=== PATIENT | female | born 1945 | race Caucasian/White ===

== ENCOUNTER 2021-07-05 00:17 | Inpatient (IN) ==
[2021-07-05] MEDS ORDERED: morphine 4 MG/ML VIAL IV ONE (00:45)
[2021-07-05] MEDS ORDERED: ONDANSETRON 4 MG/2 ML VIAL IV PRN ×3 (01:18→18:45)
[2021-07-05] MEDS ORDERED: NALOXONE HCL 0.4 MG/ML VIAL IV PRN ×2 (01:18→18:45)
--- NOTE | 2021-07-05 01:35 | Emergency Department Note ---
Lower Extremity Injury HPI General Chief Complaint: Extremity Injury, Lower Stated Complaint: r hip pain Time Seen by Provider: 07/05/21 00:29 Source: EMS Mode of arrival: ambulatory Limitations: no limitations History of Present Illness HPI Narrative: Narrative: 76-year-old female history of depression, osteoarthritis, osteopenia, COPD presents to ED with severe right hip pain. She tripped and fell on at around 5 PM and has tried to bear weight and ambulate slightly since then but despite using a walker she has not really been able to and the pain is worsening which brought her to the ER. She denies head injury LOC, syncope. Denies pain or weakness in any other extremity, no head pain neck pain thoracic or abdominal pain no blood thinners no distal numbness tingling in the right lower extremity Related Data Home Medications Medication Instructions Recorded Confirmed trazodone 100 mg tablet 200 mg PO QHS PRN tab 11/07/14 06/17/21 buspirone 10 mg tablet See Dose Instructions PO .COMPLEX 05/23/15 06/17/21 tab escitalopram oxalate 10 mg tablet 10 mg PO QDAY 12/24/15 06/17/21 lorazepam 0.5 mg tablet 0.5 mg PO BID tab 12/24/15 06/17/21 bupropion HCl 300 mg 24 hr tablet, 300 mg PO QAM 06/23/16 06/17/21 extended release memantine ER 28 mg-donepezil 10 mg 1 cap PO QDAY 06/07/19 06/17/21 capsule sprinkle,ext.release 24 hr (Namzaric) atorvastatin 10 mg tablet 10 mg PO QDAY tab 03/19/21 06/17/21 ramelteon 8 mg tablet 8 mg PO QHS tab 03/19/21 06/17/21 linaclotide 72 mcg capsule 72 mcg PO QAM 06/17/21 06/17/21 (Linzess) Previous Rx's Medication Instructions Recorded incontinence pad, liner, disp #100 each 03/06/16 albuterol sulfate 90 mcg/actuation 2 puff INHALATION .COMPLEX PRN #18 11/25/17 aerosol inhaler g cholecalciferol (vitamin D3) 1,250 50,000 unit PO QMONTH #12 cap 08/22/20 mcg (50,000 unit) capsule potassium chloride 10 mEq 10 meq PO QDAY #90 tab 10/15/20 tablet,extended release levothyroxine 75 mcg tablet 75 mcg PO QDAY #90 tab 02/05/21 hydroxychloroquine 200 mg tablet 300 mg PO QDAY #135 tab 02/20/21 alendronate 70 mg tablet 70 mg PO QWEEK #12 tab 03/06/21 pantoprazole 20 mg tablet,delayed 20 mg PO BID #180 tab 04/17/21 release lidocaine 5 % topical ointment 1 applic TOPICAL .QD-TID PRN #30 g 04/25/21 nitroglycerin 0.4 % (w/w) rectal 1 inch IN BID #30 g 05/08/21 ointment duloxetine 30 mg capsule,delayed 30 mg PO QDAY #30 cap 06/26/21 release (Cymbalta) Allergies Allergy/AdvReac Type Severity Reaction Status Date / Time naproxen AdvReac Unknown Verified 06/17/21 14:48 Review of Systems ROS ROS Narrative: Narrative: At least 10 systems reviewed and otherwise acutely negative except as in the HPI PFSH Narrative Patient History Narrative: Narrative: Medical/Surgical/Family History All Active Problems Closed hip fracture (Acute) Fecal incontinence due to anorectal disorder (Acute) Nausea (Acute) Complaint of melena (Acute) Acute posterior anal fissure (Acute) Lesion of left lung (Acute) JOHN (obstructive sleep apnea) (Acute) Free monoclonal light chain (Acute) Hypothyroidism (Chronic) Microscopic hematuria (Chronic) 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) Pleural effusion transudative (Acute) Urinary frequency (Chronic) Gross hematuria (Acute) Right shoulder pain (Acute) Alcohol abuse, episodic (Chronic) Allergic rhinitis (Chronic) Anemia, iron deficiency (Chronic) Anxiety disorder (Chronic) Cataract (Chronic) COPD (chronic obstructive pulmonary disease) (Chronic) Chronic pain (Chronic) Constipation (Chronic) Depressive disorder (Chronic) Dermatitis (Chronic) Dysphagia (Chronic) Gastroesophageal reflux (Chronic) Hyperlipidemia (Chronic) Insomnia (Chronic) Skin lesion (Chronic) Low back pain (Chronic) Menopausal and postmenopausal disorder (Chronic) Myalgia (Chronic) Osteoarthrosis (Acute) Pain in joint, lower leg (Chronic) Scoliosis (Chronic) Sinusitis, chronic (Chronic) Status post bunionectomy (Chronic) History of colonoscopy (Chronic) History of dilation and curettage (Chronic) History of esophagogastroduodenoscopy (Chronic) History of hemorrhoidectomy (Chronic) History of knee replacement procedure of right knee (Chronic) History of lumpectomy of left breast (Chronic) History of temporomandibular joint disorder (Chronic) History of varicose vein stripping (Chronic) Decreased peripheral vision (Chronic) Fall at home (Chronic) Memory impairment (Chronic) Chest pain made worse by breathing (Chronic) Exudative pleural effusion (Chronic) Degenerative joint disease of right hip (Chronic) Antinuclear factor positive (Chronic) Acquired hypothyroidism (Chronic) Long-term use of immunosuppressant medication (Acute) Encounter for long-term (current) use of high-risk medication (Acute) Osteoporosis (Acute) Shoulder pain, bilateral (Acute) Squamous cell carcinoma (Chronic) Antinuclear factor positive (Chronic) Memory loss (Chronic) Incontinence (Chronic) Trigger finger of both hands (Acute) Colloid thyroid nodule (Chronic) Hoarseness of voice (Chronic) Disequilibrium (Chronic) Weight loss (Acute) Medicare annual wellness visit, initial (Acute) Polyarthralgia (Acute) Medical History Abdominal pain 03/27/14 - Dr. Raines Acquired hypothyroidism Colloid thyroid nodules. On Synthroid 50 mcg daily for hypothyroidism. Acute posterior anal fissure Not improved Alcohol abuse, episodic 03/27/14 - Dr. Raines Allergic rhinitis 1999. Nasal allergies; year round Anemia, iron deficiency 07/25/2013. Low ferritin 28 colonoscopy unrevealing h/o low iron as per patient TIBC ok. Will start on iron replacement, risks benefits and common aderse events discussed, all questions answered. Ok to use colace if patient has constipation. Recheck CBC, check celiac panel, check C MP in 3 months. Antinuclear factor positive Anxiety disorder Patient states well-controlled on bupropion, buspirone, Lexapro, gabapentin, and lorazepam. She also takes trazodone as needed for sleep. This is managed by Dr. Mckeon Cataract Chest pain Chest pain made worse by breathing Chronic pain 1999; Low back, shoulders, and arms. She has taken oxycodone in the past for this. Colloid thyroid nodule Biopsy-proven. Thyroid ultrasound to check for growth due to complaint of hoarseness of voice. Complaint of melena Resolved a few days ago Hemoccult negative today in exam room Constipation On Linzess. Managed by GI. COPD (chronic obstructive pulmonary disease) Appears mild. I do not have PFTs. Smoked for only 3 years, and quit 20 years ago. Patient uses Incruse Ellipta occasionally. States she does not use a lbuterol. Costochondritis 03/27/14 - Dr. Raines Decreased peripheral vision Degenerative joint disease of right hip moderate to severe, central wear pattern Depressive disorder Family hx of this as well; she feels that her symptoms are well controlled on her current medications; she is seen a [facility] outpatient [facility]. Dermatitis Disequilibrium Holter monitor without findings suggestive of cardiac cause of dizziness. Consider neurologic work-up. Dysphagia 03/27/14 - Dr. Raines Edema of both feet Encounter for long-term (current) use of high-risk medication Exudative pleural effusion Fall at home Fatigue Fecal incontinence due to anorectal disorder Female pattern hair loss Most likely female pattern hair loss. Declines Lelia We reviewed her medications that could potentially contribute, which include hydroxychloroquine, antidepressants, and atorvastatin Patient wants to stop the atorvastatin after discussion of risks versus benefits Free monoclonal light chain Gastroesophageal reflux Nausea is primary symptom Gross hematuria Hallucinations Hoarseness of voice Possibly silent GERD. Start Protonix 20 mg every morning. Hyperlipidemia Taking statin for primary prevention, but patient now declining Hypothyroidism Due to colloid nodule Synthroid 75 mcg daily Incontinence Insomnia Lesion of left lung Appears similar to previous CT scans. Likely round atelectasis. Long-term use of immunosuppressant medication Low back pain Memory impairment Memory loss [facility]CI. On Namzaric. Managed by Dr. Snu Menopausal and postmenopausal disorder Microscopic hematuria CT negative besides thickening of bladder. Cystoscopy ordered. Myalgia 2002; Muscle pain in her arms, shoulders, and back. Nausea Zofran caused headaches Recent EGD did show inflammation in the stomach JOHN (obstructive sleep apnea) Osteoarthrosis Osteoporosis Pain in joint, lower leg Total knee replacement in her right knee Pain in joint, shoulder region Pleural effusion on left Pleural effusion transudative Status post thoracentesis. Reassurance provided. Will repeat CT scan in 3 months to monitor pleural effusion and pulmonary nodules. Polyarthralgia Right hip pain Scoliosis Shoulder pain, bilateral Sinusitis, chronic Skin lesion 04/10/2011; Right lower leg/removed Squamous cell carcinoma Trigger finger of both hands Trochanteric bursitis of both hips Urinary frequency Mild chronic, mostly in the mornings Trace leukocyte esterase and trace blood Multiple urine cultures in the past have been negative for significant growth Microscopic hematuria, cystoscopy scheduled UTI (urinary tract infection) 12/13/2013 Weight loss Unintentional weight loss of 14 pounds over the 3 mo. approximately 30 pounds over the last couple of years. Lab work-up unrevealing. Age-appropriate cancer screening up-to-date. Surgical History History of colonoscopy 07/05/2013 noted tubular adenoma in transervese colon History of dilation and curettage x2 for menorrhagia History of esophagogastroduodenoscopy 04/13/2014 History of esophagogastroduodenoscopy (EGD) (01/01/17) History of hemorrhoidectomy History of knee replacement procedure of right knee Jan 2013; per Dr. Graham History of lumpectomy of left breast . Side not specified. Benign. History of temporomandibular joint disorder 1982; TMJ surgery History of varicose vein stripping 1989; x2 Status post bunionectomy 1998, 2012; Bunion surgery. Left foot; right foot - Dr. Estrella Family History No family history of renal disease No problems noted. Grandmother Anemia Maternal Family history of diabetes mellitus Maternal; Not specified Family history of hepatitis Maternal; Not specified Disorder of joint Maternal Osteoporosis Maternal; not specified Uncle Anemia Family history of diabetes mellitus Not specified Family history of hepatitis Not specified Disorder of joint Osteoporosis Not specified Niece Bipolar affective disorder Schizophrenia Sister , 60s; from breast cancer Malignant neoplasm of breast Essential hypertension Irritable bowel syndrome Father Essential hypertension Social History Smoking Status: Former smoker Alcohol Intake Frequency: does not drink Substance Use: does not use Exam Narrative Narrative: Narrative: Constitutional: normally developed, appears in some pain, overall a bit frail Head: Normocephalic, atraumatic, Eyes: No Icterus, ENT: Moist mucus membranes, Neck: Supple, Cardiac: Normal heart sounds, palpable dorsalis pedis and radial pulses, Pulmonary: Normal respiratory effort. Breath sounds clear, no wheeze, rhonchi, rales, Gastrointestinal: Abdomen soft, non-distended, non-tender, pelvis stable Musculoskeletal: No gross deformities, well perfused, no midline spinal tendern ess bilateral upper extremities left lower extremity unremarkable. Right lower extremity distally she is neurovascularly intact and knee is nontender nor is ankle. However she has severe right hip pain with any attempted logroll or any attempted range of motion Skin: warm, dry Neuro: Alert and oriented. General Limitations: no limitations Course Vital Signs Vital signs: Vital Signs Temperature 36.9 C 07/05/21 00:22 Pulse Rate 68 07/05/21 00:22 Respiratory Rate 17 07/05/21 00:22 Blood Pressure 118/77 07/05/21 00:22 Pulse Oximetry (%) 98 07/05/21 00:22 Temperature 36.9 C 07/05/21 00:22 Pulse Rate 74 07/05/21 01:16 Respiratory Rate 17 07/05/21 00:22 Blood Pressure 119/70 07/05/21 01:16 Pulse Oximetry (%) 95 07/05/21 01:16 MDM MDM Narrative Medical decision making narrative: Narrative: Patient with mechanical trip and fall earlier this evening but unable to really ambulate on it so she came in to ER. Most suspicious for right hip fracture given her extreme pain with any attempted range of motion or logroll. Is given analgesia will obtain x-ray X-ray per my interpretation does show a suspected impacted femoral neck fracture on that right side Chest x-ray shows no obvious traumatic injury Will obtain basic laboratory studies, patient is made n.p.o. and given some maintenance IV fluids I have spoken with Dr. Shankar who will plan orthopedic operative fix tomorrow I have spoken with Dr. Delatorre who accepts admission. Vital signs stable Lab Data Result diagrams: 07/05/21 00:58 07/05/21 00:58 ED POC Tests ED POC Tests: [facility] - SARS Antigen Negative Discharge Plan Patient/Caregiver Discharge Instructions Pt seen by ACCREDITATION COORDINATOR/PA only: No Clinical Impression: Closed hip fracture Patient Disposition: Xfer As Inpt ([facility]) Condition: Fair Follow up with: Riki Mg DO [Primary Care Provider] - Prescriptions: No Action (DME) incontinence pad, liner, disp pad See Dose Instructions .ROUTE .MEDSUPPLY Qty: 100 2RF Dose Instruction: As directed Rx Instructions: Use as directed. Also include urinary wipes cholecalciferol (vitamin D3) 1,250 mcg (50,000 unit) capsule 50,000 unit PO QMONTH Qty: 12 0RF potassium chloride 10 mEq tablet extended release 10 meq PO QDAY Qty: 90 3RF Rx Instructions: give with food (meal/snack) levothyroxine 75 mcg tablet 75 mcg PO QDAY Qty: 90 3RF alendronate 70 mg tablet 70 mg PO QWEEK Qty: 12 1RF lidocaine 5 % ointment 1 applic topical .QD-TID PRN (Reason: pain) Qty: 30 0RF nitroglycerin 0.4 % (w/w) ointment 1 inch IN BID Qty: 30 1RF duloxetine [Cymbalta] 30 mg capsule,delayed release(DR/EC) 30 mg PO QDAY Qty: 30 2RF trazodone 100 mg tablet 200 mg PO QHS PRN (Reason: Sleep) 0RF buspirone 10 mg tablet See Dose Instructions mg PO .COMPLEX 0RF Rx Instructions: PO Take 1 & 1/2 tablets in the morning and midday and 1 tablet at bedtime PO albuterol sulfate 90 mcg/actuation HFA aerosol inhaler 2 puff INHALATION .COMPLEX PRN (Reason: sob) Qty: 18 3RF Rx Instructions: 2 puff INHALATION Q4-6H PRN; administer with spacer Namzaric 28-10 mg capsule,sprinkle,ER 24hr 1 cap PO QDAY 0RF ramelteon 8 mg tablet 8 mg PO QHS 0RF atorvastatin 10 mg tablet 10 mg PO QDAY 0RF pantoprazole 20 mg tablet,delayed release (DR/EC) 20 mg PO BID Qty: 180 3RF Linzess 72 mcg capsule 72 mcg PO QAM 0RF lorazepam 0.5 mg tablet 0.5 mg PO BID 0RF escitalopram oxalate 10 mg tablet 10 mg PO QDAY 0RF bupropion HCl 300 mg tablet extended release 24 hr 300 mg PO QAM 0RF hydroxychloroquine 200 mg tablet 300 mg PO QDAY Qty: 135 1RF
[2021-07-05 01:40] LABS: Basophils # (Auto) 0.06 K/mcL (0.00-0.30); Basophils % (Auto) 0.5 % (0.0-2.0); Eosinophils # (Auto) 0.02 K/mcL (0.00-0.70); Eosinophils % (Auto) 0.2 % (0.0-7.0); Hematocrit 38.5 % (34.1-44.9); Hemoglobin 12.5 g/dL (11.2-15.7); Lymphocytes % (Auto) 6.1 % (15.5-49.0); Mean Cell Volume 93.9 fL (80.0-100.0); Mean Corpuscular HGB Conc 32.5 g/dL (31.0-36.0); Mean Platelet Volume 9.6 fL (7.4-10.4); Monocytes # (Auto) 0.91 K/mcL (0.10-0.90); Monocytes % (Auto) 7.9 % (1.0-12.0); Neutrophils % (Auto) 85.3 % (38.0-78.0); Platelet Count 224 K/mcL (140-440); Red Cell Distribution Width 14.1 % (11.5-14.5); WBC 11.5 K/mcL (4.5-11.0)
[2021-07-05 01:53] LABS: Blood Urea Nitrogen 14 mg/dL (8-23); Calcium 8.6 mg/dL (8.6-10.4); Carbon Dioxide 24 mmol/L (22-30); Chloride 92 mmol/L (96-108); Glomerular Filtration Rate 89; Glucose 118 mg/dL (70-105)
[2021-07-05] MEDS: LACTATED RINGERS 1,000 ML IV SCH ×2 (02:59→16:32)
[2021-07-05] MEDS: HYDROmorphone 0.5 MG/0.5 ML SYRINGE IV PRN ×3 (02:59→09:35)
[2021-07-05] MEDS ORDERED: IPRATROPIUM/ALBUTEROL 3 ML AMPUL.NEB NEB PRN ×3 (07:51→18:45)
[2021-07-05] MEDS ORDERED: SCOPOLAMINE 1 PATCH PATCH TOPICAL PRN (07:51)
--- NOTE | 2021-07-05 07:51 | XRay Report ---
HISTORY: Fell with right hip pain FINDINGS: There is an acute subcapital fracture of the right femoral neck. There is impaction along the lateral border resulting in angulation deformity. The fracture does not extend to the articular surface. The hip joint is normal in width. There is also an obliquely oriented fracture through the right superior pubic ramus. These fractures are new compared with the prior CT done on 06/20/21. IMPRESSION: Subcapital fracture of the right femoral neck and fractured right superior pubic ramus Interpreted and Authenticated by: Yoel Dai 07/05/21
--- NOTE | 2021-07-05 07:53 | XRay Report ---
HISTORY: Preop for repair of right hip fracture FINDINGS: Nodular pleural thickening is present in the left lower thorax. This has remained stable since the recent chest CT done on 06/20/21. There is underlying pulmonary fibrosis. No acute infiltrate is present. The heart size is normal. There is no congestive heart failure. IMPRESSION: chronic pleural and parenchymal scarring, predominantly involving the left lower thorax. No acute abnormality Interpreted and Authenticated by: Yoel Dai 07/05/21
--- NOTE | 2021-07-05 11:30 | Internal Med History&Physical ---
HPI History of Present Illness Patient information: Note initiated : 07/05/21 at 11:27 am Service Date, if different from initiated Date: [] Patient: Aminata Erickson a 76 y/o F admitted on 07/05/21 for r hip pain. Chief Complaint: [] History of present illness: Ms. Erickson is a 76 year old F Patient presented to ED after trip and fall around 5 PM with right hip pain. She does use a walker typically. Patient was sitting down and she got up to go take the garbage out got dizzy and fell. No loss of consciousness. Work-up in the ED revealed a right hip fracture. Dr. Shankar was contacted. Review of Systems: Pertinent positives as above. Denies headache/fever/chills/nausea/vomiting/chest or abdominal pain/cough/dyspnea/diarrhea. Remaining 10 point review of system reviewed negative. 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) Pleural effusion transudative (Acute) Urinary frequency (Chronic) Gross hematuria (Acute) Right shoulder pain (Acute) Alcohol abuse, episodic (Chronic) Allergic rhinitis (Chronic) Anemia, iron deficiency (Chronic) Anxiety disorder (Chronic) Cataract (Chronic) COPD (chronic obstructive pulmonary disease) (Chronic) Chronic pain (Chronic) Constipation (Chronic) Depressive disorder (Chronic) Dermatitis (Chronic) Dysphagia (Chronic) Gastroesophageal reflux (Chronic) Hyperlipidemia (Chronic) Insomnia (Chronic) Skin lesion (Chronic) Low back pain (Chronic) Menopausal and postmenopausal disorder (Chronic) Myalgia (Chronic) Osteoarthrosis (Acute) Pain in joint, lower leg (Chronic) Scoliosis (Chronic) Sinusitis, chronic (Chronic) Status post bunionectomy (Chronic) History of colonoscopy (Chronic) History of dilation and curettage (Chronic) History of esophagogastroduodenoscopy (Chronic) History of hemorrhoidectomy (Chronic) History of knee replacement procedure of right knee (Chronic) History of lumpectomy of left breast (Chronic) History of temporomandibular joint disorder (Chronic) History of varicose vein stripping (Chronic) Decreased peripheral vision (Chronic) Fall at home (Chronic) Memory impairment (Chronic) Chest pain made worse by breathing (Chronic) Exudative pleural effusion (Chronic) Degenerative joint disease of right hip (Chronic) Antinuclear factor positive (Chronic) Acquired hypothyroidism (Chronic) Long-term use of immunosuppressant medication (Acute) Encounter for long-term (current) use of high-risk medication (Acute) Osteoporosis (Acute) Shoulder pain, bilateral (Acute) Squamous cell carcinoma (Chronic) Antinuclear factor positive (Chronic) Memory loss (Chronic) Incontinence (Chronic) Trigger finger of both hands (Acute) Colloid thyroid nodule (Chronic) Hoarseness of voice (Chronic) Disequilibrium (Chronic) Weight loss (Acute) Medicare annual wellness visit, initial (Acute) Polyarthralgia (Acute) Medical History Abdominal pain 03/27/14 - Dr. Raines Acquired hypothyroidism Colloid thyroid nodules. On Synthroid 50 mcg daily for hypothyroidism. Acute posterior anal fissure Not improved Alcohol abuse, episodic 03/27/14 - Dr. Raines Allergic rhinitis 1999. Nasal allergies; year round Anemia, iron deficiency 07/25/2013. Low ferritin 28 colonoscopy unrevealing h/o low iron as per patient TIBC ok. Will start on iron replacement, risks benefits and common aderse events discussed, all questions answered. Ok to use colace if patient has constipation. Recheck CBC, check celiac panel, check C MP in 3 months. Antinuclear factor positive Anxiety disorder Patient states well-controlled on bupropion, buspirone, Lexapro, gabapentin, and lorazepam. She also takes trazodone as needed for sleep. This is managed by Dr. Mckeon Cataract Chest pain Chest pain made worse by breathing Chronic pain 2000; Low back, shoulders, and arms. She has taken oxycodone in the past for this. Colloid thyroid nodule Biopsy-proven. Thyroid ultrasound to check for growth due to complaint of hoarseness of voice. Complaint of melena Resolved a few days ago Hemoccult negative today in exam room Constipation On Linzess. Managed by GI. COPD (chronic obstructive pulmonary disease) Appears mild. I do not have PFTs. Smoked for only 3 years, and quit 20 years ago. Patient uses Incruse Ellipta occasionally. States she does not use albuterol. Costochondritis 03/27/14 - Dr. Raines Decreased peripheral vision Degenerative joint disease of right hip moderate to severe, central wear pattern Depressive disorder Family hx of this as well; she feels that her symptoms are well controlled on her current medications; she is seen a [facility] outpatient MH. Dermatitis Disequilibrium Holter monitor without findings suggestive of cardiac cause of dizziness. Consider neurologic work-up. Dysphagia 03/27/14 - Dr. Raines Edema of both feet Encounter for long-term (current) use of high-risk medication Exudative pleural effusion Fall at home Fatigue Fecal incontinence due to anorectal disorder Female pattern hair loss Most likely female pattern hair loss. Declines Lelia We reviewed her medications that could potentially contribute, which include hydroxychloroquine, antidepressants, and atorvastatin Patient wants to stop the atorvastatin after discussion of risks versus benefits Free monoclonal light chain Gastroesophageal reflux Nausea is primary symptom Gross hematuria Hallucinations Hoarseness of voice Possibly silent GERD. Start Protonix 20 mg every morning. Hyperlipidemia Taking statin for primary prevention, but patient now declining Hypothyroidism Due to colloid nodule Synthroid 75 mcg daily Incontinence Insomnia Lesion of left lung Appears similar to previous CT scans. Likely round atelectasis. Long-term use of immunosuppressant medication Low back pain Memory impairment Memory loss MCI. On Namzaric. Managed by Dr. Sun Menopausal and postmenopausal disorder Microscopic hematuria CT negative besides thickening of bladder. Cystoscopy ordered. Myalgia 2002; Muscle pain in her arms, shoulders, and back. Nausea Zofran caused headaches Recent EGD did show inflammation in the stomach JOHN (obstructive sleep apnea) Osteoarthrosis Osteoporosis Pain in joint, lower leg Total knee replacement in her right knee Pain in joint, shoulder region Pleural effusion on left Pleural effusion transudative Status post thoracentesis. Reassurance provided. Will repeat CT scan in 3 months to monitor pleural effusion and pulmonary nodules. Polyarthralgia Right hip pain Scoliosis Shoulder pain, bilateral Sinusitis, chronic Skin lesion 04/10/2011; Right lower leg/removed Squamous cell carcinoma Trigger finger of both hands Trochanteric bursitis of both hips Urinary frequency Mild chronic, mostly in the mornings Trace leukocyte esterase and trace blood Multiple urine cultures in the past have been negative for significant growth Microscopic hematuria, cystoscopy scheduled UTI (urinary tract infection) 12/13/2013 Weight loss Unintentional weight loss of 14 pounds over the 3 mo. approximately 30 pounds over the last couple of years. Lab work-up unrevealing. Age-appropriate cancer screening up-to-date. Surgical History History of colonoscopy 07/05/2013 noted tubular adenoma in transervese colon History of dilation and curettage x2 for menorrhagia History of esophagogastroduodenoscopy 04/13/2014 History of esophagogastroduodenoscopy (EGD) (01/01/17) History of hemorrhoidectomy History of knee replacement procedure of right knee Jan 2013; per Dr. Graham History of lumpectomy of left breast . Side not specified. Benign. History of temporomandibular joint disorder 1982; TMJ surgery History of varicose vein stripping 1989; x2 Status post bunionectomy 1998, 2012; Bunion surgery. Left foot; right foot - Dr. Estrella Family History No family history of renal disease No problems noted. 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: 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 smoking status: Former smoker quit date: 05/04/94 pack-years: 2 alcohol intake frequency: does not drink substance use type: does not use MEDS/ALLERGIES Home Medications and Allergies Home Medications Medication Instructions Recorded Confirmed Type trazodone 100 mg tablet 200 mg PO QHS PRN tab 11/07/14 06/17/21 History buspirone 10 mg tablet See Dose Instructions PO .COMPLEX 05/23/15 06/17/21 History tab escitalopram oxalate 10 mg tablet 10 mg PO QDAY 12/24/15 06/17/21 History lorazepam 0.5 mg tablet 0.5 mg PO BID tab 12/24/15 06/17/21 History incontinence pad, liner, disp #100 each 03/06/16 06/17/21 Rx bupropion HCl 300 mg 24 hr tablet, 300 mg PO QAM 06/23/16 06/17/21 History extended release albuterol sulfate 90 mcg/actuation 2 puff INHALATION .COMPLEX PRN #18 11/25/17 06/17/21 Rx aerosol inhaler g memantine ER 28 mg-donepezil 10 mg 1 cap PO QDAY 06/07/19 06/17/21 History capsule sprinkle,ext.release 24 hr (Namzaric) cholecalciferol (vitamin D3) 1,250 50,000 unit PO QMONTH #12 cap 08/22/20 06/17/21 Rx mcg (50,000 unit) capsule potassium chloride 10 mEq 10 meq PO QDAY #90 tab 10/15/20 06/17/21 Rx tablet,extended release levothyroxine 75 mcg tablet 75 mcg PO QDAY #90 tab 02/05/21 06/17/21 Rx hydroxychloroquine 200 mg tablet 300 mg PO QDAY #135 tab 02/20/21 06/17/21 Rx alendronate 70 mg tablet 70 mg PO QWEEK #12 tab 03/06/21 06/17/21 Rx atorvastatin 10 mg tablet 10 mg PO QDAY tab 03/19/21 06/17/21 History ramelteon 8 mg tablet 8 mg PO QHS tab 03/19/21 06/17/21 History pantoprazole 20 mg tablet,delayed 20 mg PO BID #180 tab 04/17/21 06/17/21 Rx release lidocaine 5 % topical ointment 1 applic TOPICAL .QD-TID PRN #30 g 04/25/21 06/17/21 Rx nitroglycerin 0.4 % (w/w) rectal 1 inch NC BID #30 g 05/08/21 06/17/21 Rx ointment linaclotide 72 mcg capsule 72 mcg PO QAM 06/17/21 06/17/21 History (Linzess) duloxetine 30 mg capsule,delayed 30 mg PO QDAY #30 cap 06/26/21 Rx release (Cymbalta) Allergies Allergy/AdvReac Type Severity Reaction Status Date / Time naproxen AdvReac Unknown Verified 06/17/21 14:48 EXAM Constitutional Vitals: Temp Pulse Resp BP Pulse Ox 99.0 F 68 14 87/51 96 07/05/21 07:13 07/05/21 07:13 07/05/21 07:13 07/05/21 07:13 07/05/21 07:13 Exam: General: Alert, Awake, No acute Distress Eyes/N/T: EOMI, PERRL, Head/Neck: neck supple, normocephalic atraumatic CV: RRR, No murmurs, normal s1/s2 Pulm: Clear b/l, no wheezing/rhonchi/rales Abd: soft, nontender, +BS x4 Ext: no clubbing/cyanosis/edema Neuro: Alert, no focal deficits, moves all extremities, CN 2-12 grossly intact, symmetrical strength b/l upper/lower, sensations intact b/l upper/lower Skin: warm/dry DATA Data Completed and Pending Labs: Labs from last 24 hours 07/05/21 07/05/21 00:58 00:58 WBC 11.5 H RBC 4.10 Hgb 12.5 Hct 38.5 MCV 93.9 MCH 30.5 MCHC 32.5 RDW 14.1 Plt Count 224 MPV 9.6 Neut % (Auto) 85.3 H Lymph % (Auto) 6.1 L [place] % (Auto) 7.9 Eos % (Auto) 0.2 Baso % (Auto) 0.5 Lymph # (Auto) 0.70 L [place] # (Auto) 0.91 H Eos # (Auto) 0.02 Baso # (Auto) 0.06 Absolute Neutrophils 9.83 H Sodium 127 L Potassium 3.9 Chloride 92 L Carbon Dioxide 24 Anion Gap 11.0 BUN 14 Creatinine 0.6 GFR Calculation 89 Glucose 118 H Calcium 8.6 A/P Narrative A/P Narrative: A: *Right hip fracture: *Polyarthritis: Follows with Dr. Martinez, on Plaquenil *MCI: Follows with Dr. Sun *Anxiety/depression: *Hypothyroidism: *GERD: *Generalized weakness/deconditioning: P: -Dr. Shankar for orthopedic surgery -Pain control -PT/OT -Continue home medications -ppx: SCD and postop per Ortho / home PPI Time Spent With Patient Time: Total time spent is greater than 50% in coordination of care (as documented) at patient's floor/unit and/or counseling patient: QUALITY VTE Deep Vein Thrombosis/Pulmonary Embolism Present on Admission: No
[2021-07-05] MEDS ORDERED: MAGNESIUM SULFATE 2 GM/50 ML BAG IV PRN (11:36)
[2021-07-05] MEDS ORDERED: POTASSIUM CHLORIDE 20 MEQ TABLET PO PRN ×2 (11:36)
[2021-07-05] MEDS ORDERED: morphine 4 MG/ML VIAL IV PRN (11:36)
[2021-07-05] MEDS ORDERED: SENNOSIDES 1 TABLET PO PRN (11:36)
[2021-07-05] MEDS ORDERED: POTASSIUM CHLORIDE 40 MEQ in DEXTROSE 5% IN WATER 500 ML IV PRN (11:36)
[2021-07-05] MEDS: 0.9 % SODIUM CHLORIDE 10 ML SYRINGE IV SCH ×2 (13:39→20:46)
[2021-07-05] MEDS: morphine 4 MG/ML VIAL IV PRN ×2 (16:01→22:06)
[2021-07-05] MEDS ORDERED: ceFAZolin 2 GM in DEXTROSE 5% IN WATER 50 ML IV SCH (17:30)
[2021-07-05] MEDS ORDERED: TRANEXAMIC ACID 1,000 MG/10 ML VIAL IV ONE (17:51)
[2021-07-05] MEDS ORDERED: BENZOCAINE/MENTHOL 1 LOZENGE PO PRN (17:51)
[2021-07-05] MEDS ORDERED: PROPOFOL 200 MG/20 ML VIAL IV ONE (18:00)
[2021-07-05] MEDS ORDERED: LIDOCAINE HCL/PF 100 MG/5 ML SYRINGE IV ONE (18:00)
[2021-07-05] MEDS ORDERED: ROPIVACAINE HCL/PF 20 ML VIAL IJ ONE (18:00)
[2021-07-05] MEDS ORDERED: KETAMINE 50 MG/ML Syringe (ANEST) IV ONE (18:00)
[2021-07-05] MEDS ORDERED: ONDANSETRON 4 MG/2 ML VIAL ONE (18:00)
[2021-07-05] MEDS ORDERED: TRANEXAMIC ACID 1,000 MG/10 ML VIAL ONE ×2 (18:00→19:54)
[2021-07-05] MEDS ORDERED: MAGNESIUM SULFATE 2 GM/50 ML BAG IV ONE (18:00)
[2021-07-05] MEDS ORDERED: DEXAMETHASONE 10 MG/ML VIAL ONE (18:00)
--- NOTE | 2021-07-05 18:00 | Discharge Plan ---
Discharge Plan Patient/Caregiver Discharge Instructions Activity: increase activity as tolerated and other Diet: Regular Diet Activity Restrictions/Additional Instructions: WBAT. Posterior hip precautions. Avoid flexion and IR Prescriptions: New hydrocodone-acetaminophen 7.5-325 mg tablet 1 tab PO Q6H PRN (Reason: pain) Qty: 60 0RF aspirin 81 mg tablet,delayed release (DR/EC) 81 mg PO BID Qty: 60 0RF No Action (DME) incontinence pad, liner, disp pad See Dose Instructions .ROUTE .MEDSUPPLY Qty: 100 2RF Dose Instruction: As directed Rx Instructions: Use as directed. Also include urinary wipes cholecalciferol (vitamin D3) 1,250 mcg (50,000 unit) capsule 50,000 unit PO QMONTH Qty: 12 0RF potassium chloride 10 mEq tablet extended release 10 meq PO QDAY Qty: 90 3RF Rx Instructions: give with food (meal/snack) levothyroxine 75 mcg tablet 75 mcg PO QDAY Qty: 90 3RF alendronate 70 mg tablet 70 mg PO QWEEK Qty: 12 1RF lidocaine 5 % ointment 1 applic topical .QD-TID PRN (Reason: pain) Qty: 30 0RF nitroglycerin 0.4 % (w/w) ointment 1 inch WI BID Qty: 30 1RF duloxetine [Cymbalta] 30 mg capsule,delayed release(DR/EC) 30 mg PO QDAY Qty: 30 2RF trazodone 100 mg tablet 200 mg PO QHS PRN (Reason: Sleep) 0RF buspirone 10 mg tablet See Dose Instructions mg PO .COMPLEX 0RF Rx Instructions: PO Take 1 & 1/2 tablets in the morning and midday and 1 tablet at bedtime PO albuterol sulfate 90 mcg/actuation HFA aerosol inhaler 2 puff INHALATION .COMPLEX PRN (Reason: sob) Qty: 18 3RF Rx Instructions: 2 puff INHALATION Q4-6H PRN; administer with spacer Namzaric 28-10 mg capsule,sprinkle,ER 24hr 1 cap PO QDAY 0RF ramelteon 8 mg tablet 8 mg PO QHS 0RF atorvastatin 10 mg tablet 10 mg PO QDAY 0RF pantoprazole 20 mg tablet,delayed release (DR/EC) 20 mg PO BID Qty: 180 3RF Linzess 72 mcg capsule 72 mcg PO QAM 0RF lorazepam 0.5 mg tablet 0.5 mg PO BID 0RF escitalopram oxalate 10 mg tablet 10 mg PO QDAY 0RF bupropion HCl 300 mg tablet extended release 24 hr 300 mg PO QAM 0RF hydroxychloroquine 200 mg tablet 300 mg PO QDAY Qty: 135 1RF Follow Up Plan Follow up with: Young Shankar MD [Physician] - Riki Mg DO [Primary Care Provider] - Patient Disposition: Home, Self-Care Prognosis: Fair Discharge Orders: Discharge Order (Routine); Ordered 07/08/21 Ordered By: Young Shankar
[2021-07-05] MEDS ORDERED: ACETAMINOPHEN 1,000 MG/100 ML BAG IV ONE ×2 (18:45→19:55)
[2021-07-05] MEDS ORDERED: PROMETHAZINE 25 MG/ML VIAL IV PRN (18:45)
[2021-07-05] MEDS ORDERED: diphenhydrAMINE 50 MG/ML VIAL IV PRN (18:45)
[2021-07-05] MEDS ORDERED: LACTATED RINGERS 250 ML IV PRN (18:45)
[2021-07-05] MEDS ORDERED: fentaNYL 100 MCG/2 ML VIAL IV PRN (18:45)
[2021-07-05] MEDS ORDERED: LACTATED RINGERS 1,000 ML IV SCH (18:45)
[2021-07-05] MEDS ORDERED: MEPERIDINE 25 MG/ML VIAL IV PRN (18:45)
--- NOTE | 2021-07-05 19:24 | Operative Note ---
Operative Note Operative Note: Pre-operative diagnosis: Right hip subcapital femoral neck fracture Postoperative diagnosis: Same Procedure: Right hip bipolar hemiarthroplasty Implants: Depuy Actis stem size 6, standard neck, with +12 mm 28 mm x 48 mm bipolar head Findings: As above diagnosis unstable femoral neck fracture Complications: None Estimated Blood loss: 300 cc Assist: Vadim Sellers whose assistance was critical safety efficacy of the procedure DOS: July 06, 2019 Clinical note: The patient continues to suffer from the above mentioned diagnosis. She had a fall and could not ambulate. She is brought to the emergency room where she was diagnosed with the above-mentioned fracture. Arthroplasty was offered to the patient and she consented the procedure where understanding the risk. Goal of surgery was to provide a stable implant which would allow the patient to begin ambulation right away and avoid complications from prolonged bedrest. H&P: The patient was met outside the operating room and symptoms were reviewed and a physical exam performed. The patient demonstrated ongoing symptoms and signs as previously discussed. Risk versus benefits of the procedure were again discussed. Patient wished to proceed with the surgery aware and understanding of these risks. The operative site was marked. The patient was prepped and draped in usual fashion lateral with the right hip up. All bony prominences were padded. Began by making incision directly lateral over the GT extending approximately 5 cm in either direction. This was then carried down through the IT band and gluteus sandra. This was then retracted exposing the short external rotators. The piriformis was palpated and this was released from the piriformis fossa using this as a sleeve of tissue peeled posteriorly and protect the sciatic nerve. The capsule was then split exposing the fractured femoral neck. The base of the neck was then exposed using 2 Homans. A saw was used to cut the femoral neck approximately 1 cm proximal to the lesser trochanter and a loose bone was removed. A corkscrew was then screwed into the fractured femoral head and this was removed. The acetabulum was cleared of debris. The proximal femoral shaft was then exposed. It was broached with successively larger sizes until a broach of the size mentioned above was found to have a good secure fit in the canal. Successively larger trial neck lengths were used until good stability was achieved with the size mentioned above. Hip stability was checked in flexion and internal rotation and was not found to dislocate spontaneously. The knees and heels were also palpated through the drape and found to be of equivalent length. The trial was then removed. The canal was irrigated with copious amounts of normal saline and irrisept solution. The definitive implant was then inserted. Hip was reduced. Was again checked for stability and did not dislocate spontaneously and and leg lengths were checked manually and found to be equivalent. Capsule was then closed with a #5 FiberWire suture with 2 [id number] sutures. A modified Nilo-Shashank suture was used to capture the piriformis and reattachment of the piriformis fossa. The IT band was closed with a strata fix followed by Monocryl for the subcutaneous layers and rosie for the skin. Sterile dressing was applied. Patient was brought to PACU in good condition. Dressing can be changed to a waterproof dressing in 1 to 2 days. The patient should follow-up with orthopedics in 2 weeks time for wound check and staple removal. Patient weight- bear as tolerated but should remain on posterior precautions avoiding hip flexion beyond 90 degrees and internal rotation.
[2021-07-05] MEDS: METHOCARBAMOL 1,000 MG/10 ML VIAL IV PRN (20:43)
[2021-07-05] MEDS: HYDROcodone/APAP 5/325MG TABLET PO PRN (20:44)
[2021-07-05] MEDS: ENOXAPARIN 30 MG/0.3 ML SYRINGE SQ SCH (20:44)
[2021-07-05] MEDS: 0.9 % SODIUM CHLORIDE 1,000 ML IV SCH (20:45)
[2021-07-05] MEDS: DOCUSATE SODIUM 100 MG CAPSULE PO SCH (20:46)
[2021-07-06] MEDS: METHOCARBAMOL 1,000 MG/10 ML VIAL IV PRN (02:28)
[2021-07-06] MEDS: HYDROcodone/APAP 5/325MG TABLET PO PRN ×4 (02:29→21:03)
[2021-07-06] MEDS: LACTATED RINGERS 1,000 ML IV SCH ×2 (05:24→18:50)
[2021-07-06] MEDS: 0.9 % SODIUM CHLORIDE 10 ML SYRINGE IV SCH ×3 (05:24→21:05)
[2021-07-06 06:54] LABS: Hematocrit 33.4 % (34.1-44.9); Hemoglobin 10.5 g/dL (11.2-15.7)
[2021-07-06 07:02] LABS: Prothrombin Time 13.9 sec (11.9-14.5)
[2021-07-06 07:22] LABS: ALT/SGPT 12 U/L (<40); AST/SGOT 17 U/L (<32); Albumin 3.2 gm/dL (3.2-5.2); Albumin/Globulin Ratio 1.3 (1.0-2.3); Alkaline Phosphatase 56 U/L (39-117); Bilirubin,Direct < 0.2 mg/dL (0-0.3); Bilirubin,Total 0.3 mg/dL (0.1-1.0); Blood Urea Nitrogen 8 mg/dL (8-23); Calcium 7.6 mg/dL (8.6-10.4); Carbon Dioxide 27 mmol/L (22-30); Chloride 101 mmol/L (96-108); Globulin 2.4 gm/dL (2.2-3.7); Glomerular Filtration Rate 94; Glucose 117 mg/dL (70-105); Lactate Dehydrogenase 172 U/L (135-225); Phosphorous 3.7 mg/dL (2.5-4.5); Triglycerides 40 mg/dL (<150); Uric Acid 2.2 mg/dL (2.5-8.0)
--- NOTE | 2021-07-06 08:14 | XRay Report ---
HISTORY: Postop right hemiarthroplasty for recent right hip fracture FINDINGS: Patient has a well-positioned hemiarthroplasty in the right hip. There is no fracture or abnormal soft tissue calcification around the joint. Nondisplaced fracture of the right superior pubic ramus remains stable in alignment. On the current exam the pubic fracture appears to be old. IMPRESSION: Well-positioned right hemiarthroplasty Interpreted and Authenticated by: Yoel Dai 07/06/21
[2021-07-06] MEDS: DOCUSATE SODIUM 100 MG CAPSULE PO SCH ×2 (08:52→21:04)
[2021-07-06] MEDS: ENOXAPARIN 30 MG/0.3 ML SYRINGE SQ SCH ×2 (08:52→21:05)
--- NOTE | 2021-07-06 08:55 | Internal Med Progress Note ---
SUBJECTIVE Subjective Patient information: Note initiated : 07/06/21 at 8:54 am Service Date, if different from initiated Date: [] Patient: Aminata Erickson 76 y/o F admitted on 07/05/21 for r hip pain. Chief Complaint: [] Interval history: Chief Complaint: [] History of present illness: Ms. Erickson is a 76 year old F Patient presented to ED after trip and fall around 5 PM with right hip pain. She does use a walker typically. Patient was sitting down and she got up to go take the garbage out got dizzy and fell. No loss of consciousness. Work-up in the ED revealed a right hip fracture. Dr. Shankar was contacted. 07/06 Patient feeling better postop. No overnight event or new complaints. Review of Systems: denies headache/fever/chills/nausea/vomiting/chest or abdominal pain/cough/dyspnea/diarrhea. Otherwise see above. Constitutional Vitals: Vital Signs Temp Pulse Resp BP Pulse Ox 98.5 F 62 14 104/58 92 07/06/21 07:40 07/06/21 07:40 07/06/21 07:40 07/06/21 07:40 07/06/21 07:40 Period Temp Pulse Resp BP Sys/Martin Pulse Ox Last 24 Hr 97.5 F-99.2 F 57-76 12-23 89-129/47-67 91-100 Intake and Output 07/05/21 07/06/21 07/06/21 21:59 05:59 13:59 Intake Total 3100 400 480 Output Total 1300 1200 Balance 1800 -800 480 Weight 51.71 kg Intake & Output: Intake & Output 07/05/21 07/06/21 07/06/21 21:59 05:59 13:59 Intake Total 3100 400 480 Output Total 1300 1200 Balance 1800 -800 480 Weight 51.71 kg Intake: IV 1100 Lactated Ringers 1,000 ml @ 75 1000 mls/hr IV .[id number] [facility] Rx#: [id number] Oral 400 480 IV - Manual Only 2000 Output: Urine Catheter Amount 1250 1200 Estimated Blood Loss 50 Other: Meal Breakfast Percent of Meal Consumed 100% Feeding Ability Independent Urine Appearance Clear Clear Uretheral (Mac) Clear Clear Urine Color Bright Yellow Bright Yellow Uretheral (Mac) Bright Yellow Urine Odor Normal # Bowel Movements 0 Exam: General: Alert, Awake, No acute Distress Eyes/N/T: EOMI, Head/Neck: neck supple, CV: RRR, No murmurs, Pulm: Clear b/l, no wheezing/rhonchi/rales Abd: soft, nontender, +BS x4 Ext: no clubbing/cyanosis/edema Neuro: Alert, no focal deficits, moves all extremities, Skin: warm/dry OBJ DATA Labs CBC & Chem 7: 07/06/21 04:00 07/06/21 06:02 Labs: Abnormal Lab Results 07/06/21 07/06/21 07/05/21 06:02 04:00 00:58 WBC Hgb 10.5 L Hct 33.4 L Neut % (Auto) Lymph % (Auto) Lymph # (Auto) [place] # (Auto) Absolute Neutrophils Sodium 127 L Chloride 92 L Anion Gap 6.0 L Creatinine 0.5 L Glucose 117 H 118 H Uric Acid 2.2 L Calcium 7.6 L Total Protein 5.6 L 07/05/21 00:58 WBC 11.5 H Hgb Hct Neut % (Auto) 85.3 H Lymph % (Auto) 6.1 L Lymph # (Auto) 0.70 L [place] # (Auto) 0.91 H Absolute Neutrophils 9.83 H Sodium Chloride Anion Gap Creatinine Glucose Uric Acid Calcium Total Protein Meds: Medications Acetaminophen (Acetaminophen 325 Mg Tablet) 650 mg PO Q6HP PRN; Protocol PRN Reason: Per Pain Protocol/Fever > 101 Hydrocodone Bitart/Acetaminophen (Hydrocodone/Apap 5/325mg Tablet) 1 tab PO Q4HP PRN PRN Reason: PAIN LEVEL 3-6 Last Admin: 07/06/21 07:34 Dose: 1 tab Documented by: Albuterol/Ipratropium (Ipratropium/Albuterol 3 Ml Ampul.Neb) 3 ml NEB Q4HP PRN PRN Reason: Shortness Of Breath Docusate Sodium (Docusate Sodium 100 Mg Capsule) 100 mg PO BID [facility] Last Admin: 07/06/21 08:52 Dose: 100 mg Documented by: Enoxaparin Sodium (Enoxaparin 30 Mg/0.3 Ml Syringe) 30 mg SQ BID [facility] Last Admin: 07/06/21 08:52 Dose: 30 mg Documented by: Lactated Ringer's (Lactated Ringers) 1,000 mls @ 75 mls/hr IV .[id number] [facility] Last Admin: 07/06/21 05:24 Dose: Not Given Documented by: Potassium Chloride 40 meq/ (Dextrose) 520 mls @ 130 mls/hr IV UD PRN PRN Reason: Potassium < 3 Magnesium Sulfate (Magnesium Sulfate) 2 gm in 50 mls @ 50 mls/hr IV UD PRN PRN Reason: Magnesium </= 1.6 Sodium Chloride (Sodium Chloride 0.9%) 1,000 mls @ 75 mls/hr IV .[id number] [facility] Last Admin: 07/05/21 20:45 Dose: 75 mls/hr Documented by: Methocarbamol (Methocarbamol 1,000 Mg/10 Ml Vial) 750 mg IV Q6HP PRN PRN Reason: Muscle Spasm Last Admin: 07/06/21 02:28 Dose: 750 mg Documented by: Morphine Sulfate (Morphine 4 Mg/Ml Vial) 0 mg IV Q3HP PRN PRN Reason: Pain Last Admin: 07/05/21 22:06 Dose: 4 mg Documented by: Naloxone HCl (Naloxone Hcl 0.4 Mg/Ml Vial) 0.1 mg IV Q2MIN PRN PRN Reason: Opiate Reversal Ondansetron HCl (Ondansetron 4 Mg/2 Ml Vial) 4 mg IV Q4HP PRN PRN Reason: Nausea And Vomiting Pneumococcal Polyvalent Vaccine (Pneumococcal 23-Danya P-Sac Vac 0.5 Ml Syringe) 0.5 ml IM .ONCE ONE Stop: 07/06/21 10:01 Polyethylene Glycol (Polyethylene Glycol 3350 17 Gm Packet) 17 gm PO DAILYP PRN PRN Reason: Constipation Potassium Chloride (Potassium Chloride 20 Meq Tablet) 40 meq PO UD PRN PRN Reason: Potssium is 3-3.5 Potassium Chloride (Potassium Chloride 20 Meq Tablet) 40 meq PO UD PRN PRN Reason: Potassium < 3 Senna (Sennosides 1 Tablet) 2 tab PO DAILYP PRN PRN Reason: Constipation Sodium Chloride (0.9 % Sodium Chloride 10 Ml Syringe) 10 ml IV Q8 [facility] Last Admin: 07/06/21 05:24 Dose: Not Given Documented by: Throat Lozenges (Benzocaine/Menthol 1 Lozenge) 1 lozenge PO PRN PRN PRN Reason: Sore Throat A/P Narrative A/P Narrative: A: *Right hip fracture: s/p ORIF (07/05) *Polyarthritis: Follows with Dr. Martinez, on Plaquenil *MCI: Follows with Dr. Sun *Anxiety/depression: *Hypothyroidism: *GERD: *Generalized weakness/deconditioning: P: -Dr. Shankar for orthopedic surgery -Pain control -PT/OT -Continue home medications -Awaiting placement -ppx: SCD and postop per Ortho / home PPI Time Spent With Patient Time: Total time spent is greater than 50% in coordination of care (as documented) at patient's floor/unit and/or counseling patient: QUALITY VTE Deep Vein Thrombosis/Pulmonary Embolism Present on Admission: No
[2021-07-06] MEDS ORDERED: PNEUMOCOCCAL 23-VAL P-SAC VAC 0.5 ML SYRINGE IM ONE (10:00)
[2021-07-06] MEDS ORDERED: BUSPIRONE 10 MG SCH (10:15)
[2021-07-06] MEDS: HYDROXYCHLOROQUINE 200 MG TABLET PO SCH (10:42)
[2021-07-06] MEDS: buPROPion 150 MG TAB.XL.24H PO SCH (10:42)
[2021-07-06] MEDS: LORazepam 0.5 MG TABLET PO PRN ×2 (10:42→22:06)
[2021-07-06] MEDS: LEVOTHYROXINE 75 MCG TABLET PO SCH (10:49)
[2021-07-06] MEDS: busPIRone 15 MG TABLET PO SCH (10:49)
[2021-07-06] MEDS: DULoxetine 30 MG CAPSULE PO SCH (10:49)
[2021-07-06] MEDS: ESCITALOPRAM 10 MG TABLET PO SCH (10:49)
--- NOTE | 2021-07-06 11:36 | Orthopedic Progress Note ---
SUBJECTIVE Subjective Patient information: Note initiated : 07/06/21 at 11:34 am Service Date, if different from initiated Date: [] Patient: Aminata Erickson 76 y/o F admitted on 07/05/21 for r hip pain. Chief Complaint: moderate pain Principal diagnosis: R alonso hip arthroplasty Constitutional Vitals: Vital Signs Temp Pulse Resp BP Pulse Ox 98.3 F 75 16 131/58 98 07/06/21 11:30 07/06/21 11:30 07/06/21 11:30 07/06/21 11:30 07/06/21 11:30 Period Temp Pulse Resp BP Sys/Martin Pulse Ox Last 24 Hr 97.5 F-99.2 F 57-76 12-23 89-131/47-67 91-100 Intake and Output 07/05/21 07/06/21 07/06/21 21:59 05:59 13:59 Intake Total 3100 400 1480 Output Total 1300 1200 Balance 1800 -800 1480 Weight 114 lb 114 lb Patient Weight 07/07/21 05:59 Weight 114 lb Intake & Output: Intake & Output 07/05/21 07/06/21 07/06/21 21:59 05:59 13:59 Intake Total 3100 400 1480 Output Total 1300 1200 Balance 1800 -800 1480 Weight 114 lb 114 lb Intake: IV 1100 1000 Sodium Chloride 0.9% 1,000 ml @ 1000 75 mls/hr IV .[id number] [facility] Rx#: [id number] Lactated Ringers 1,000 ml @ 75 1000 mls/hr IV .[id number] [facility] Rx#: [id number] Oral 400 480 IV - Manual Only 2000 Output: Urine Catheter Amount 1250 1200 Estimated Blood Loss 50 Other: Meal Breakfast Percent of Meal Consumed 100% Feeding Ability Independent Urine Appearance Clear Clear Uretheral (Mac) Clear Clear Urine Color Bright Yellow Bright Yellow Uretheral (Mac) Bright Yellow Urine Odor Normal # Bowel Movements 0 Skin Skin exam: Present dry and warm Additional comments: bandages c/d/i nvi-distal OBJ DATA Labs CBC & Chem 7: 07/06/21 04:00 07/06/21 06:02 Labs: Abnormal Lab Results 07/06/21 07/06/21 07/05/21 06:02 04:00 00:58 WBC Hgb 10.5 L Hct 33.4 L Neut % (Auto) Lymph % (Auto) Lymph # (Auto) [place] # (Auto) Absolute Neutrophils Sodium 127 L Chloride 92 L Anion Gap 6.0 L Creatinine 0.5 L Glucose 117 H 118 H Uric Acid 2.2 L Calcium 7.6 L Total Protein 5.6 L 07/05/21 00:58 WBC 11.5 H Hgb Hct Neut % (Auto) 85.3 H Lymph % (Auto) 6.1 L Lymph # (Auto) 0.70 L [place] # (Auto) 0.91 H Absolute Neutrophils 9.83 H Sodium Chloride Anion Gap Creatinine Glucose Uric Acid Calcium Total Protein Meds: Medications Acetaminophen (Acetaminophen 325 Mg Tablet) 650 mg PO Q6HP PRN; Protocol PRN Reason: Per Pain Protocol/Fever > 101 Hydrocodone Bitart/Acetaminophen (Hydrocodone/Apap 5/325mg Tablet) 1 tab PO Q4HP PRN PRN Reason: PAIN LEVEL 3-6 Last Admin: 07/06/21 07:34 Dose: 1 tab Documented by: Albuterol/Ipratropium (Ipratropium/Albuterol 3 Ml Ampul.Neb) 3 ml NEB Q4HP PRN PRN Reason: Shortness Of Breath Atorvastatin Calcium (Atorvastatin 10 Mg Tablet) 10 mg PO QDAY [facility] Bupropion HCl (Bupropion 150 Mg Tab.Xl.24h) 300 mg PO QAM [facility] Last Admin: 07/06/21 10:42 Dose: 300 mg Documented by: Buspirone HCl (Buspirone 15 Mg Tablet) 15 mg PO DAILY [facility] Last Admin: 07/06/21 10:49 Dose: 15 mg Documented by: Buspirone HCl (Buspirone 5 Mg Tablet) 10 mg PO [facility] Docusate Sodium (Docusate Sodium 100 Mg Capsule) 100 mg PO BID [facility] Last Admin: 07/06/21 08:52 Dose: 100 mg Documented by: Duloxetine HCl (Duloxetine 30 Mg Capsule) 30 mg PO QDAY [facility] Last Admin: 07/06/21 10:49 Dose: 30 mg Documented by: Enoxaparin Sodium (Enoxaparin 30 Mg/0.3 Ml Syringe) 30 mg SQ BID [facility] Last Admin: 07/06/21 08:52 Dose: 30 mg Documented by: Escitalopram Oxalate (Escitalopram 10 Mg Tablet) 10 mg PO QDAY [facility] Last Admin: 07/06/21 10:49 Dose: 10 mg Documented by: Hydroxychloroquine Sulfate (Hydroxychloroquine 200 Mg Tablet) 300 mg PO QDAY [facility] Last Admin: 07/06/21 10:42 Dose: 300 mg Documented by: Lactated Ringer's (Lactated Ringers) 1,000 mls @ 75 mls/hr IV .[id number] [facility] Last Admin: 07/06/21 05:24 Dose: Not Given Documented by: Potassium Chloride 40 meq/ (Dextrose) 520 mls @ 130 mls/hr IV UD PRN PRN Reason: Potassium < 3 Magnesium Sulfate (Magnesium Sulfate) 2 gm in 50 mls @ 50 mls/hr IV UD PRN PRN Reason: Magnesium </= 1.6 Levothyroxine Sodium (Levothyroxine 75 Mcg Tablet) 75 mcg PO QDAY [facility] Last Admin: 07/06/21 10:49 Dose: 75 mcg Documented by: Lorazepam (Lorazepam 0.5 Mg Tablet) 0.5 mg PO BID PRN PRN Reason: Anxiety Last Admin: 07/06/21 10:42 Dose: 0.5 mg Documented by: Methocarbamol (Methocarbamol 1,000 Mg/10 Ml Vial) 750 mg IV Q6HP PRN PRN Reason: Muscle Spasm Last Admin: 07/06/21 02:28 Dose: 750 mg Documented by: Morphine Sulfate (Morphine 4 Mg/Ml Vial) 0 mg IV Q3HP PRN PRN Reason: Pain Last Admin: 07/05/21 22:06 Dose: 4 mg Documented by: Naloxone HCl (Naloxone Hcl 0.4 Mg/Ml Vial) 0.1 mg IV Q2MIN PRN PRN Reason: Opiate Reversal Ondansetron HCl (Ondansetron 4 Mg/2 Ml Vial) 4 mg IV Q4HP PRN PRN Reason: Nausea And Vomiting Pantoprazole Sodium (Pantoprazole 40 Mg Tablet) 40 mg PO BIDAC [facility] Linaclotide [Linzess (] 72 Mcg Capsule) 1 dose PO DAILYP PRN PRN Reason: Constipation Memantine-Donepezil [Namzaric] 28-10 Mg Capsule 1 dose PO QHS [facility] Polyethylene Glycol (Polyethylene Glycol 3350 17 Gm Packet) 17 gm PO DAILYP PRN PRN Reason: Constipation Potassium Chloride (Potassium Chloride 20 Meq Tablet) 40 meq PO UD PRN PRN Reason: Potssium is 3-3.5 Potassium Chloride (Potassium Chloride 20 Meq Tablet) 40 meq PO UD PRN PRN Reason: Potassium < 3 Ramelteon (Ramelteon 8 Mg Tablet) 8 mg PO QHS [facility] Senna (Sennosides 1 Tablet) 2 tab PO DAILYP PRN PRN Reason: Constipation Sodium Chloride (0.9 % Sodium Chloride 10 Ml Syringe) 10 ml IV Q8 [facility] Last Admin: 07/06/21 05:24 Dose: Not Given Documented by: Throat Lozenges (Benzocaine/Menthol 1 Lozenge) 1 lozenge PO PRN PRN PRN Reason: Sore Throat Trazodone HCl (Trazodone Hcl 100 Mg Tablet) 200 mg PO QHS PRN PRN Reason: Sleep A/P Narrative A/P Narrative: 1 day s/p R alonso hip arthroplasty-stable Methocarbanol 750mg tid prin pain. Time Spent With Patient Time: Total time spent is greater than 50% in coordination of care (as documented) at patient's floor/unit and/or counseling patient:
[2021-07-06] MEDS: morphine 4 MG/ML VIAL IV PRN (13:08)
[2021-07-06] MEDS: METHOCARBAMOL 750 MG TABLET PO PRN ×2 (13:08→21:04)
[2021-07-06] MEDS: PANTOPRAZOLE 40 MG TABLET PO SCH (16:58)
[2021-07-06] MEDS: 0.9 % SODIUM CHLORIDE 1,000 ML IV SCH (18:45)
[2021-07-06] MEDS: traZODone HCL 100 MG TABLET PO PRN (21:04)
[2021-07-06] MEDS: busPIRone 5 MG TABLET PO SCH (21:04)
[2021-07-06] MEDS: RAMELTEON 8 MG TABLET PO SCH (21:05)
[2021-07-06] MEDS: MEMANTINE DONEPEZIL PO SCH (21:05)
[2021-07-07] MEDS: DULoxetine 30 MG CAPSULE PO SCH (08:15)
[2021-07-07] MEDS: DOCUSATE SODIUM 100 MG CAPSULE PO SCH ×2 (08:15→20:52)
[2021-07-07] MEDS: buPROPion 150 MG TAB.XL.24H PO SCH (08:15)
[2021-07-07] MEDS: busPIRone 15 MG TABLET PO SCH (08:15)
[2021-07-07] MEDS: HYDROXYCHLOROQUINE 200 MG TABLET PO SCH (08:16)
[2021-07-07] MEDS: PANTOPRAZOLE 40 MG TABLET PO SCH ×2 (08:16→17:01)
[2021-07-07] MEDS: LEVOTHYROXINE 75 MCG TABLET PO SCH (08:16)
[2021-07-07] MEDS: ATORVASTATIN 10 MG TABLET PO SCH (08:16)
[2021-07-07] MEDS: HYDROcodone/APAP 5/325MG TABLET PO PRN ×3 (08:16→17:01)
[2021-07-07] MEDS: METHOCARBAMOL 750 MG TABLET PO PRN ×2 (08:16→17:00)
[2021-07-07] MEDS: 0.9 % SODIUM CHLORIDE 10 ML SYRINGE IV SCH ×3 (08:17→20:52)
[2021-07-07] MEDS: ESCITALOPRAM 10 MG TABLET PO SCH (08:17)
[2021-07-07] MEDS: ENOXAPARIN 30 MG/0.3 ML SYRINGE SQ SCH ×2 (08:17→20:52)
--- NOTE | 2021-07-07 08:34 | Internal Med Progress Note ---
SUBJECTIVE Subjective Patient information: Note initiated : 07/07/21 at 8:34 am Service Date, if different from initiated Date: [] Patient: Aminata Erickson 76 y/o F admitted on 07/05/21 for r hip pain. Chief Complaint: [] Principal diagnosis: R alonso hip arthroplasty Interval history: Chief Complaint: [] History of present illness: Ms. Erickson is a 76 year old F Patient presented to ED after trip and fall around 5 PM with right hip pain. She does use a walker typically. Patient was sitting down and she got up to go take the garbage out got dizzy and fell. No loss of consciousness. Work-up in the ED revealed a right hip fracture. Dr. Shankar was contacted. 07/06 Patient feeling better postop. No overnight event or new complaints. 07/07 No change. Awaiting placement. Review of Systems: denies headache/fever/chills/nausea/vomiting/chest or abdominal pain/cough/dyspnea/diarrhea. Otherwise see above. Constitutional Vitals: Vital Signs Temp Pulse Resp BP Pulse Ox 97.6 F 79 18 115/55 95 07/07/21 07:34 07/07/21 07:34 07/07/21 07:34 07/07/21 07:34 07/07/21 07:34 Period Temp Pulse Resp BP Sys/Martin Pulse Ox Last 24 Hr 97.6 F-98.7 F 75-87 16-20 115-135/55-66 94-98 Intake and Output 07/06/21 07/07/21 07/07/21 21:59 05:59 13:59 Intake Total 480 800 Output Total 1925 400 Balance -1445 -400 800 Weight 52.254 kg Intake & Output: Intake & Output 07/06/21 07/07/21 07/07/21 21:59 05:59 13:59 Intake Total 480 800 Output Total 1925 400 Balance -1445 -400 800 Weight 52.254 kg Intake: Oral 480 800 Output: Urine Catheter Amount 1925 400 Other: Meal Dinner Breakfast Percent of Meal Consumed 100% 100% Feeding Ability Independent Urine Appearance Clear Clear Urine Color Pale Bright Yellow Exam: General: Alert, Awake, No acute Distress Eyes/N/T: EOMI, Head/Neck: neck supple, CV: RRR, No murmurs, Pulm: Clear b/l, no wheezing/rhonchi/rales Abd: soft, nontender, +BS x4 Ext: no clubbing/cyanosis/edema Neuro: Alert, no focal deficits, moves all extremities, Skin: warm/dry OBJ DATA Labs CBC & Chem 7: 07/06/21 04:00 07/06/21 06:02 Labs: Abnormal Lab Results 07/06/21 07/06/21 07/05/21 06:02 04:00 00:58 WBC Hgb 10.5 L Hct 33.4 L Neut % (Auto) Lymph % (Auto) Lymph # (Auto) [place] # (Auto) Absolute Neutrophils Sodium 127 L Chloride 92 L Anion Gap 6.0 L Creatinine 0.5 L Glucose 117 H 118 H Uric Acid 2.2 L Calcium 7.6 L Total Protein 5.6 L 07/05/21 00:58 WBC 11.5 H Hgb Hct Neut % (Auto) 85.3 H Lymph % (Auto) 6.1 L Lymph # (Auto) 0.70 L [place] # (Auto) 0.91 H Absolute Neutrophils 9.83 H Sodium Chloride Anion Gap Creatinine Glucose Uric Acid Calcium Total Protein Meds: Medications Acetaminophen (Acetaminophen 325 Mg Tablet) 650 mg PO Q6HP PRN; Protocol PRN Reason: Per Pain Protocol/Fever > 101 Hydrocodone Bitart/Acetaminophen (Hydrocodone/Apap 5/325mg Tablet) 1 tab PO Q4HP PRN PRN Reason: PAIN LEVEL 3-6 Last Admin: 07/07/21 08:16 Dose: 1 tab Documented by: Albuterol/Ipratropium (Ipratropium/Albuterol 3 Ml Ampul.Neb) 3 ml NEB Q4HP PRN PRN Reason: Shortness Of Breath Atorvastatin Calcium (Atorvastatin 10 Mg Tablet) 10 mg PO QDAY [facility] Last Admin: 07/07/21 08:16 Dose: 10 mg Documented by: Bupropion HCl (Bupropion 150 Mg Tab.Xl.24h) 300 mg PO QAM [facility] Last Admin: 07/07/21 08:15 Dose: 300 mg Documented by: Buspirone HCl (Buspirone 15 Mg Tablet) 15 mg PO DAILY [facility] Last Admin: 07/07/21 08:15 Dose: 15 mg Documented by: Buspirone HCl (Buspirone 5 Mg Tablet) 10 mg PO [facility] Last Admin: 07/06/21 21:04 Dose: 10 mg Documented by: Docusate Sodium (Docusate Sodium 100 Mg Capsule) 100 mg PO BID [facility] Last Admin: 07/07/21 08:15 Dose: 100 mg Documented by: Duloxetine HCl (Duloxetine 30 Mg Capsule) 30 mg PO QDAY [facility] Last Admin: 07/07/21 08:15 Dose: 30 mg Documented by: Enoxaparin Sodium (Enoxaparin 30 Mg/0.3 Ml Syringe) 30 mg SQ BID [facility] Last Admin: 07/07/21 08:17 Dose: 30 mg Documented by: Escitalopram Oxalate (Escitalopram 10 Mg Tablet) 10 mg PO QDAY [facility] Last Admin: 07/07/21 08:17 Dose: 10 mg Documented by: Hydroxychloroquine Sulfate (Hydroxychloroquine 200 Mg Tablet) 300 mg PO QDAY [facility] Last Admin: 07/07/21 08:16 Dose: 300 mg Documented by: Potassium Chloride 40 meq/ (Dextrose) 520 mls @ 130 mls/hr IV UD PRN PRN Reason: Potassium < 3 Magnesium Sulfate (Magnesium Sulfate) 2 gm in 50 mls @ 50 mls/hr IV UD PRN PRN Reason: Magnesium </= 1.6 Levothyroxine Sodium (Levothyroxine 75 Mcg Tablet) 75 mcg PO QDAY [facility] Last Admin: 07/07/21 08:16 Dose: 75 mcg Documented by: Lorazepam (Lorazepam 0.5 Mg Tablet) 0.5 mg PO BID PRN PRN Reason: Anxiety Last Admin: 07/06/21 22:06 Dose: 0.5 mg Documented by: Methocarbamol (Methocarbamol 750 Mg Tablet) 750 mg PO TIDP PRN PRN Reason: Pain Last Admin: 07/07/21 08:16 Dose: 750 mg Documented by: Morphine Sulfate (Morphine 4 Mg/Ml Vial) 0 mg IV Q3HP PRN PRN Reason: Pain Last Admin: 07/06/21 13:08 Dose: 4 mg Documented by: Naloxone HCl (Naloxone Hcl 0.4 Mg/Ml Vial) 0.1 mg IV Q2MIN PRN PRN Reason: Opiate Reversal Ondansetron HCl (Ondansetron 4 Mg/2 Ml Vial) 4 mg IV Q4HP PRN PRN Reason: Nausea And Vomiting Pantoprazole Sodium ([facility] 40 Mg Tablet) [facility] Last Admin: 07/07/21 08:16 Dose: 40 mg Documented by: Linaclotide [Linzess (] 72 Mcg Capsule) 1 dose PO DAILYP PRN PRN Reason: Constipation Memantine-Donepezil [Namzaric] 28-10 Mg Capsule 1 dose PO QHS [facility] Last Admin: 07/06/21 21:05 Dose: Not Given Documented by: Polyethylene Glycol (Polyethylene Glycol 3350 17 Gm Packet) 17 gm PO DAILYP PRN PRN Reason: Constipation Potassium Chloride (Potassium Chloride 20 Meq Tablet) 40 meq PO UD PRN PRN Reason: Potssium is 3-3.5 Potassium Chloride (Potassium Chloride 20 Meq Tablet) 40 meq PO UD PRN PRN Reason: Potassium < 3 Ramelteon (Ramelteon 8 Mg Tablet) 8 mg PO QHS [facility] Last Admin: 07/06/21 21:05 Dose: Not Given Documented by: Senna (Sennosides 1 Tablet) 2 tab PO DAILYP PRN PRN Reason: Constipation Sodium Chloride (0.9 % Sodium Chloride 10 Ml Syringe) 10 ml IV Q8 [facility] Last Admin: 07/07/21 08:17 Dose: 10 ml Documented by: Throat Lozenges (Benzocaine/Menthol 1 Lozenge) 1 lozenge PO PRN PRN PRN Reason: Sore Throat Trazodone HCl (Trazodone Hcl 100 Mg Tablet) 200 mg PO QHS PRN PRN Reason: Sleep Last Admin: 07/06/21 21:04 Dose: 200 mg Documented by: A/P Narrative A/P Narrative: A: *Right hip fracture: s/p ORIF (07/05) *Polyarthritis: Follows with Dr. Martinez, on Plaquenil *MCI: Follows with Dr. Sun *Anxiety/depression: *Hypothyroidism: *GERD: *Generalized weakness/deconditioning: P: -Dr. Shankar for orthopedic surgery -Pain control -PT/OT -Continue home medications -Awaiting placement -ppx: lovenox bid per Ortho / home PPI Time Spent With Patient Time: Total time spent is greater than 50% in coordination of care (as documented) at patient's floor/unit and/or counseling patient: QUALITY VTE Deep Vein Thrombosis/Pulmonary Embolism Present on Admission: No
[2021-07-07] MEDS ORDERED: PNEUMOCOCCAL 23-VAL P-SAC VAC 0.5 ML SYRINGE IM ONE (13:45)
--- NOTE | 2021-07-07 14:34 | General Surgery Progress Note ---
Surgery - Auxiliary Note Subjective Patient Information: Note initiated : 07/07/21 at 2:32 pm Service Date, if different from initiated Date: [] Patient: Aminata Erickson 76 y/o F admitted on 07/05/21 for r hip pain. Chief Complaint: Pt pain improved today. Motivated to get better and do PT exercises. bandages c/d/i nvi-distal A/P: 2 days s/p R alonso-hip arthroplasty mobilize with PT signing out ortho service f/u at [facility] in 2 weeks for re-check and staple removal. WBAT
[2021-07-07] MEDS: MEMANTINE DONEPEZIL PO SCH (19:47)
[2021-07-07] MEDS: busPIRone 5 MG TABLET PO SCH (20:52)
[2021-07-07] MEDS: traZODone HCL 100 MG TABLET PO PRN (20:52)
[2021-07-07] MEDS: RAMELTEON 8 MG TABLET PO SCH (20:53)
[2021-07-07] MEDS: morphine 4 MG/ML VIAL IV PRN (20:53)
[2021-07-08] MEDS: morphine 4 MG/ML VIAL IV PRN (04:16)
[2021-07-08] MEDS: 0.9 % SODIUM CHLORIDE 10 ML SYRINGE IV SCH ×3 (04:59→21:42)
[2021-07-08] MEDS: DOCUSATE SODIUM 100 MG CAPSULE PO SCH ×2 (08:54→21:42)
[2021-07-08] MEDS: buPROPion 150 MG TAB.XL.24H PO SCH (08:54)
[2021-07-08] MEDS: PANTOPRAZOLE 40 MG TABLET PO SCH ×2 (08:54→17:30)
[2021-07-08] MEDS: ESCITALOPRAM 10 MG TABLET PO SCH (08:54)
[2021-07-08] MEDS: HYDROXYCHLOROQUINE 200 MG TABLET PO SCH (08:54)
[2021-07-08] MEDS: DULoxetine 30 MG CAPSULE PO SCH (08:54)
[2021-07-08] MEDS: busPIRone 15 MG TABLET PO SCH (08:54)
[2021-07-08] MEDS: LEVOTHYROXINE 75 MCG TABLET PO SCH (08:54)
[2021-07-08] MEDS: ENOXAPARIN 30 MG/0.3 ML SYRINGE SQ SCH ×2 (08:54→21:42)
[2021-07-08] MEDS: ATORVASTATIN 10 MG TABLET PO SCH (08:54)
[2021-07-08] MEDS: HYDROcodone/APAP 5/325MG TABLET PO PRN (11:06)
[2021-07-08] MEDS: METHOCARBAMOL 750 MG TABLET PO PRN (11:07)
--- NOTE | 2021-07-08 19:24 | Internal Med Progress Note ---
SUBJECTIVE Subjective Patient information: Note initiated : 07/08/21 at 7:22 pm Service Date, if different from initiated Date: [] Patient: Aminata Erickson 76 y/o F admitted on 07/05/21 for r hip pain. Chief Complaint: [] Principal diagnosis: R alonso hip arthroplasty Interval history: Chief Complaint: [] History of present illness: Ms. Erickson is a 76 year old F Patient presented to ED after trip and fall around 5 PM with right hip pain. She does use a walker typically. Patient was sitting down and she got up to go take the garbage out got dizzy and fell. No loss of consciousness. Work-up in the ED revealed a right hip fracture. Dr. Shankar was contacted. 07/06 Patient feeling better postop. No overnight event or new complaints. 07/07 No change. Awaiting placement. 07/08 Awaiting placement. Physical exam Head: Atraumatic, normal inspection. Eyes: normal appearance, no scleral icterus. Neck: full ROM Respiratory: no respiratory distress. Cardiovascular: normal rate and rhythm, S1, S2. GI/Abdominal: soft, nontender, no guarding. Extremities: Right hip surgical incision covered with clean bandage, tenderness to movement. Neurological: CN II-XII intact, intact motor, intact sensation. Psychiatric: normal mood. Skin: warm, normal color Constitutional Vitals: Vital Signs Temp Pulse Resp BP Pulse Ox 98.4 F 84 18 95/50 95 07/08/21 16:00 07/08/21 16:00 07/08/21 16:00 07/08/21 16:00 07/08/21 16:00 Period Temp Pulse Resp BP Sys/Martin Pulse Ox Last 24 Hr 97.9 F-98.4 F 75-84 16-18 95-115/50-61 95-97 Intake and Output 07/08/21 07/08/21 07/08/21 05:59 13:59 21:59 Intake Total 240 Output Total 700 575 Balance -700 -335 Intake & Output: Intake & Output 07/08/21 07/08/21 07/08/21 05:59 13:59 21:59 Intake Total 240 Output Total 700 575 Balance -700 -335 Intake: Oral 240 Output: Urine Catheter Amount 700 575 Other: Meal Lunch Percent of Meal Consumed 25% Feeding Ability Assist with Tray Set Up Urine Appearance Uretheral (Mac) Clear Clear Clear Urine Color Light Lucinda Uretheral (Mac) Pale Bright Yellow Pale Urine Odor Normal OBJ DATA Labs CBC & Chem 7: 07/06/21 04:00 07/06/21 06:02 Labs: Abnormal Lab Results 07/06/21 07/06/21 06:02 04:00 Hgb 10.5 L Hct 33.4 L Anion Gap 6.0 L Creatinine 0.5 L Glucose 117 H Uric Acid 2.2 L Calcium 7.6 L Total Protein 5.6 L Meds: Medications Acetaminophen (Acetaminophen 325 Mg Tablet) 650 mg PO Q6HP PRN; Protocol PRN Reason: Per Pain Protocol/Fever > 101 Hydrocodone Bitart/Acetaminophen (Hydrocodone/Apap 5/325mg Tablet) 1 tab PO Q4HP PRN PRN Reason: PAIN LEVEL 3-6 Last Admin: 07/08/21 11:06 Dose: 1 tab Documented by: Albuterol/Ipratropium (Ipratropium/Albuterol 3 Ml Ampul.Neb) 3 ml NEB Q4HP PRN PRN Reason: Shortness Of Breath Atorvastatin Calcium (Atorvastatin 10 Mg Tablet) 10 mg PO QDAY [facility] Last Admin: 07/08/21 08:54 Dose: 10 mg Documented by: Bupropion HCl (Bupropion 150 Mg Tab.Xl.24h) 300 mg PO QAM [facility] Last Admin: 07/08/21 08:54 Dose: 300 mg Documented by: Buspirone HCl (Buspirone 15 Mg Tablet) 15 mg PO DAILY [facility] Last Admin: 07/08/21 08:54 Dose: 15 mg Documented by: Buspirone HCl (Buspirone 5 Mg Tablet) 10 mg PO [facility] Last Admin: 07/07/21 20:52 Dose: 10 mg Documented by: Docusate Sodium (Docusate Sodium 100 Mg Capsule) 100 mg PO BID [facility] Last Admin: 07/08/21 08:54 Dose: 100 mg Documented by: Duloxetine HCl (Duloxetine 30 Mg Capsule) 30 mg PO QDAY [facility] Last Admin: 07/08/21 08:54 Dose: 30 mg Documented by: Enoxaparin Sodium (Enoxaparin 30 Mg/0.3 Ml Syringe) 30 mg SQ BID [facility] Last Admin: 07/08/21 08:54 Dose: 30 mg Documented by: Escitalopram Oxalate (Escitalopram 10 Mg Tablet) 10 mg PO QDAY [facility] Last Admin: 07/08/21 08:54 Dose: 10 mg Documented by: Hydroxychloroquine Sulfate (Hydroxychloroquine 200 Mg Tablet) 300 mg PO QDAY [facility] Last Admin: 07/08/21 08:54 Dose: 300 mg Documented by: Potassium Chloride 40 meq/ (Dextrose) 520 mls @ 130 mls/hr IV UD PRN PRN Reason: Potassium < 3 Magnesium Sulfate (Magnesium Sulfate) 2 gm in 50 mls @ 50 mls/hr IV UD PRN PRN Reason: Magnesium </= 1.6 Levothyroxine Sodium (Levothyroxine 75 Mcg Tablet) 75 mcg PO QDAY [facility] Last Admin: 07/08/21 08:54 Dose: 75 mcg Documented by: Lorazepam (Lorazepam 0.5 Mg Tablet) 0.5 mg PO BID PRN PRN Reason: Anxiety Last Admin: 07/06/21 22:06 Dose: 0.5 mg Documented by: Methocarbamol (Methocarbamol 750 Mg Tablet) 750 mg PO TIDP PRN PRN Reason: Pain Last Admin: 07/08/21 11:07 Dose: 750 mg Documented by: Morphine Sulfate (Morphine 4 Mg/Ml Vial) 0 mg IV Q3HP PRN PRN Reason: Pain Last Admin: 07/08/21 04:16 Dose: 4 mg Documented by: Naloxone HCl (Naloxone Hcl 0.4 Mg/Ml Vial) 0.1 mg IV Q2MIN PRN PRN Reason: Opiate Reversal Ondansetron HCl (Ondansetron 4 Mg/2 Ml Vial) 4 mg IV Q4HP PRN PRN Reason: Nausea And Vomiting Pantoprazole Sodium (Pantoprazole 40 Mg Tablet) 40 mg PO BIDAC [facility] Last Admin: 07/08/21 17:30 Dose: 40 mg Documented by: Linaclotide [Linzess (] 72 Mcg Capsule) 1 dose PO DAILYP PRN PRN Reason: Constipation Memantine-Donepezil [Namzaric] 28-10 Mg Capsule 1 dose PO QHS [facility] Last Admin: 07/07/21 19:47 Dose: Not Given Documented by: Polyethylene Glycol (Polyethylene Glycol 3350 17 Gm Packet) 17 gm PO DAILYP PRN PRN Reason: Constipation Potassium Chloride (Potassium Chloride 20 Meq Tablet) 40 meq PO UD PRN PRN Reason: Potssium is 3-3.5 Potassium Chloride (Potassium Chloride 20 Meq Tablet) 40 meq PO UD PRN PRN Reason: Potassium < 3 Ramelteon (Ramelteon 8 Mg Tablet) 8 mg PO QHS [facility] Last Admin: 07/07/21 20:53 Dose: Not Given Documented by: Senna (Sennosides 1 Tablet) 2 tab PO DAILYP PRN PRN Reason: Constipation Sodium Chloride (0.9 % Sodium Chloride 10 Ml Syringe) 10 ml IV Q8 [facility] Last Admin: 07/08/21 15:13 Dose: 10 ml Documented by: Throat Lozenges (Benzocaine/Menthol 1 Lozenge) 1 lozenge PO PRN PRN PRN Reason: Sore Throat Trazodone HCl (Trazodone Hcl 100 Mg Tablet) 200 mg PO QHS PRN PRN Reason: Sleep Last Admin: 07/07/21 20:52 Dose: 200 mg Documented by: A/P Narrative A/P Narrative: A: *Right hip fracture: s/p ORIF (07/05) *Polyarthritis: Follows with Dr. Martinez, on Plaquenil *MCI: Follows with Dr. Sun *Anxiety/depression: *Hypothyroidism: *GERD: *Generalized weakness/deconditioning: P: -Dr. Shankar for orthopedic surgery -Pain control -PT/OT -Continue home medications -Awaiting placement -ppx: lovenox bid per Ortho / home PPI Time Spent With Patient Time: Total time spent is greater than 50% in coordination of care (as documented) at patient's floor/unit and/or counseling patient: QUALITY VTE Deep Vein Thrombosis/Pulmonary Embolism Present on Admission: No
[2021-07-08] MEDS: traZODone HCL 100 MG TABLET PO PRN (21:41)
[2021-07-08] MEDS: busPIRone 5 MG TABLET PO SCH (21:41)
[2021-07-08] MEDS: ACETAMINOPHEN 325 MG TABLET PO PRN (21:41)
[2021-07-08] MEDS: RAMELTEON 8 MG TABLET PO SCH (23:08)
[2021-07-08] MEDS: MEMANTINE DONEPEZIL PO SCH (23:08)
[2021-07-09] MEDS: 0.9 % SODIUM CHLORIDE 10 ML SYRINGE IV SCH ×3 (05:54→20:08)
[2021-07-09] MEDS: ESCITALOPRAM 10 MG TABLET PO SCH (08:51)
[2021-07-09] MEDS: PANTOPRAZOLE 40 MG TABLET PO SCH ×2 (08:51→17:05)
[2021-07-09] MEDS: HYDROcodone/APAP 5/325MG TABLET PO PRN ×2 (08:52→21:21)
[2021-07-09] MEDS: busPIRone 15 MG TABLET PO SCH (08:52)
[2021-07-09] MEDS: ATORVASTATIN 10 MG TABLET PO SCH (08:52)
[2021-07-09] MEDS: METHOCARBAMOL 750 MG TABLET PO PRN (08:52)
[2021-07-09] MEDS: DOCUSATE SODIUM 100 MG CAPSULE PO SCH ×2 (08:52→20:08)
[2021-07-09] MEDS: LEVOTHYROXINE 75 MCG TABLET PO SCH (08:52)
[2021-07-09] MEDS: ENOXAPARIN 30 MG/0.3 ML SYRINGE SQ SCH ×2 (08:53→20:08)
[2021-07-09] MEDS: HYDROXYCHLOROQUINE 200 MG TABLET PO SCH (08:53)
[2021-07-09] MEDS: buPROPion 150 MG TAB.XL.24H PO SCH (08:53)
[2021-07-09] MEDS: DULoxetine 30 MG CAPSULE PO SCH (09:08)
--- NOTE | 2021-07-09 16:30 | Internal Med Progress Note ---
SUBJECTIVE Subjective Patient information: Note initiated : 07/09/21 at 4:29 pm Service Date, if different from initiated Date: [] Patient: Aminata Erickson 76 y/o F admitted on 07/05/21 for r hip pain. Chief Complaint: [] Principal diagnosis: R alonso hip arthroplasty Interval history: Chief Complaint: [] History of present illness: Ms. Erickson is a 76 year old F Patient presented to ED after trip and fall around 5 PM with right hip pain. She does use a walker typically. Patient was sitting down and she got up to go take the garbage out got dizzy and fell. No loss of consciousness. Work-up in the ED revealed a right hip fracture. Dr. Shankar was contacted. 07/06 Patient feeling better postop. No overnight event or new complaints. 07/07 No change. Awaiting placement. 07/08 Awaiting placement. 07/09 No interval events, awaiting placement. Physical exam Head: Atraumatic, normal inspection. Eyes: normal appearance, no scleral icterus. Neck: full ROM Respiratory: no respiratory distress. Cardiovascular: normal rate and rhythm, S1, S2. GI/Abdominal: soft, nontender, no guarding. Extremities: Right hip surgical incision covered with clean bandage, tenderness to movement. Neurological: CN II-XII intact, intact motor, intact sensation. Psychiatric: normal mood. Skin: warm, normal color Constitutional Vitals: Vital Signs Temp Pulse Resp BP Pulse Ox 98.2 F 70 20 107/68 94 07/09/21 12:00 07/09/21 12:00 07/09/21 12:00 07/09/21 12:00 07/09/21 12:00 Period Temp Pulse Resp BP Sys/Martin Pulse Ox Last 24 Hr 98.1 F-99.2 F 70-83 14-68 92-109/54-68 94-97 Intake and Output 07/09/21 07/09/21 07/09/21 05:59 13:59 21:59 Intake Total 350 Output Total 525 Balance -175 Intake & Output: Intake & Output 07/09/21 07/09/21 07/09/21 05:59 13:59 21:59 Intake Total 350 Output Total 525 Balance -175 Intake: Oral 350 Output: Urine Catheter Amount 525 Other: Urine Appearance Clear Clear Uretheral (Holt) Clear Urine Color Bright Yellow Bright Yellow Uretheral (Holt) Bright Yellow Urine Odor Normal OBJ DATA Labs CBC & Chem 7: 07/06/21 04:00 07/06/21 06:02 Meds: Medications Acetaminophen (Acetaminophen 325 Mg Tablet) 650 mg PO Q6HP PRN; Protocol PRN Reason: Per Pain Protocol/Fever > 101 Last Admin: 07/08/21 21:41 Dose: 650 mg Documented by: Hydrocodone Bitart/Acetaminophen (Hydrocodone/Apap 5/325mg Tablet) 1 tab PO Q4HP PRN PRN Reason: PAIN LEVEL 3-6 Last Admin: 07/09/21 08:52 Dose: 1 tab Documented by: Albuterol/Ipratropium (Ipratropium/Albuterol 3 Ml Ampul.Neb) 3 ml NEB Q4HP PRN PRN Reason: Shortness Of Breath Atorvastatin Calcium (Atorvastatin 10 Mg Tablet) 10 mg PO QDAY [facility] Last Admin: 07/09/21 08:52 Dose: 10 mg Documented by: Bupropion HCl (Bupropion 150 Mg Tab.Xl.24h) 300 mg PO QAM [facility] Last Admin: 07/09/21 08:53 Dose: 300 mg Documented by: Buspirone HCl (Buspirone 15 Mg Tablet) 15 mg PO DAILY [facility] Last Admin: 07/09/21 08:52 Dose: 15 mg Documented by: Buspirone HCl (Buspirone 5 Mg Tablet) 10 mg PO [facility] Last Admin: 07/08/21 21:41 Dose: 10 mg Documented by: Docusate Sodium (Docusate Sodium 100 Mg Capsule) 100 mg PO BID [facility] Last Admin: 07/09/21 08:52 Dose: 100 mg Documented by: Duloxetine HCl (Duloxetine 30 Mg Capsule) 30 mg PO QDAY [facility] Last Admin: 07/09/21 09:08 Dose: 30 mg Documented by: Enoxaparin Sodium (Enoxaparin 30 Mg/0.3 Ml Syringe) 30 mg SQ BID [facility] Last Admin: 07/09/21 08:53 Dose: 30 mg Documented by: Escitalopram Oxalate (Escitalopram 10 Mg Tablet) 10 mg PO QDAY [facility] Last Admin: 07/09/21 08:51 Dose: 10 mg Documented by: Hydroxychloroquine Sulfate (Hydroxychloroquine 200 Mg Tablet) 300 mg PO QDAY [facility] Last Admin: 07/09/21 08:53 Dose: 300 mg Documented by: Potassium Chloride 40 meq/ (Dextrose) 520 mls @ 130 mls/hr IV UD PRN PRN Reason: Potassium < 3 Magnesium Sulfate (Magnesium Sulfate) 2 gm in 50 mls @ 50 mls/hr IV UD PRN PRN Reason: Magnesium </= 1.6 Levothyroxine Sodium (Levothyroxine 75 Mcg Tablet) 75 mcg PO QDAY [facility] Last Admin: 07/09/21 08:52 Dose: 75 mcg Documented by: Lorazepam (Lorazepam 0.5 Mg Tablet) 0.5 mg PO BID PRN PRN Reason: Anxiety Last Admin: 07/06/21 22:06 Dose: 0.5 mg Documented by: Methocarbamol (Methocarbamol 750 Mg Tablet) 750 mg PO TIDP PRN PRN Reason: Pain Last Admin: 07/09/21 08:52 Dose: 750 mg Documented by: Morphine Sulfate (Morphine 4 Mg/Ml Vial) 0 mg IV Q3HP PRN PRN Reason: Pain Last Admin: 07/08/21 04:16 Dose: 4 mg Documented by: Naloxone HCl (Naloxone Hcl 0.4 Mg/Ml Vial) 0.1 mg IV Q2MIN PRN PRN Reason: Opiate Reversal Ondansetron HCl (Ondansetron 4 Mg/2 Ml Vial) 4 mg IV Q4HP PRN PRN Reason: Nausea And Vomiting Pantoprazole Sodium (Pantop[facility]ole 40 Mg Tablet) [facility] Last Admin: 07/09/21 08:51 Dose: 40 mg Documented by: Linaclotide [Linzess (] 72 Mcg Capsule) 1 dose PO DAILYP PRN PRN Reason: Constipation Memantine-Donepezil [Namzaric] 28-10 Mg Capsule [facility] Last Admin: 07/08/21 23:08 Dose: Not Given Documented by: Polyethylene Glycol (Polyethylene Glycol 3350 17 Gm Packet) 17 gm PO DAILYP PRN PRN Reason: Constipation Potassium Chloride (Potassium Chloride 20 Meq Tablet) 40 meq PO UD PRN PRN Reason: Potssium is 3-3.5 Potassium Chloride (Potassium Chloride 20 Meq Tablet) 40 meq PO UD PRN PRN Reason: Potassium < 3 Ramelteon (Ramelteon 8 Mg Tablet) 8 mg PO QHS [facility] Last Admin: 07/08/21 23:08 Dose: Not Given Documented by: Senna (Sennosides 1 Tablet) 2 tab PO DAILYP PRN PRN Reason: Constipation Sodium Chloride (0.9 % Sodium Chloride 10 Ml Syringe) 10 ml IV Q8 [facility] Last Admin: 07/09/21 05:54 Dose: 10 ml Documented by: Throat Lozenges (Benzocaine/Menthol 1 Lozenge) 1 lozenge PO PRN PRN PRN Reason: Sore Throat Trazodone HCl (Trazodone Hcl 100 Mg Tablet) 200 mg PO QHS PRN PRN Reason: Sleep Last Admin: 07/08/21 21:41 Dose: 200 mg Documented by: A/P Narrative A/P Narrative: A: *Right hip fracture: s/p ORIF (07/05) *Polyarthritis: Follows with Dr. Martinez, on Plaquenil *MCI: Follows with Dr. Sun *Anxiety/depression: *Hypothyroidism: *GERD: *Generalized weakness/deconditioning: *Urinary retention s/p holt placement P: -Dr. Shankar for orthopedic surgery -Pain control -PT/OT -Continue home medications -Awaiting placement -ppx: lovenox bid per Ortho / home PPI -urology referral at discharge Time Spent With Patient Time: Total time spent is greater than 50% in coordination of care (as documented) at patient's floor/unit and/or counseling patient: QUALITY VTE Deep Vein Thrombosis/Pulmonary Embolism Present on Admission: No
[2021-07-09] MEDS: MEMANTINE DONEPEZIL PO SCH (19:59)
[2021-07-09] MEDS: RAMELTEON 8 MG TABLET PO SCH (19:59)
[2021-07-09] MEDS: ACETAMINOPHEN 325 MG TABLET PO PRN (20:07)
[2021-07-09] MEDS: busPIRone 5 MG TABLET PO SCH (20:07)
[2021-07-09] MEDS: POLYETHYLENE GLYCOL 3350 17 GM PACKET PO PRN (20:07)
[2021-07-09] MEDS: traZODone HCL 100 MG TABLET PO PRN (20:08)
[2021-07-10] MEDS: METHOCARBAMOL 750 MG TABLET PO PRN (04:19)
[2021-07-10] MEDS: 0.9 % SODIUM CHLORIDE 10 ML SYRINGE IV SCH (05:20)
[2021-07-10 06:40] LABS: Basophils # (Auto) 0.04 K/mcL (0.00-0.30); Basophils % (Auto) 0.8 % (0.0-2.0); Eosinophils # (Auto) 0.15 K/mcL (0.00-0.70); Eosinophils % (Auto) 3.1 % (0.0-7.0); Hematocrit 30.5 % (34.1-44.9); Hemoglobin 9.9 g/dL (11.2-15.7); Lymphocytes # (Auto) 0.65 K/mcL (1.50-4.80); Lymphocytes % (Auto) 13.4 % (15.5-49.0); Mean Cell Volume 94.1 fL (80.0-100.0); Mean Corpuscular HGB Conc 32.5 g/dL (31.0-36.0); Mean Platelet Volume 9.6 fL (7.4-10.4); Monocytes # (Auto) 0.69 K/mcL (0.10-0.90); Monocytes % (Auto) 14.2 % (1.0-12.0); Neutrophils % (Auto) 68.5 % (38.0-78.0); Platelet Count 258 K/mcL (140-440); RBC 3.24 M/mcL (3.59-5.38); Red Cell Distribution Width 14.2 % (11.5-14.5); WBC 4.9 K/mcL (4.5-11.0)
[2021-07-10 06:55] LABS: Blood Urea Nitrogen 15 mg/dL (8-23); Calcium 8.8 mg/dL (8.6-10.4); Carbon Dioxide 26 mmol/L (22-30); Chloride 102 mmol/L (96-108); Glomerular Filtration Rate 94; Glucose 96 mg/dL (70-105)
[2021-07-10] MEDS: PANTOPRAZOLE 40 MG TABLET PO SCH (07:49)
[2021-07-10] MEDS: ENOXAPARIN 30 MG/0.3 ML SYRINGE SQ SCH (08:53)
[2021-07-10] MEDS: ATORVASTATIN 10 MG TABLET PO SCH (08:55)
[2021-07-10] MEDS: POLYETHYLENE GLYCOL 3350 17 GM PACKET PO PRN (08:55)
[2021-07-10] MEDS: DOCUSATE SODIUM 100 MG CAPSULE PO SCH (08:55)
[2021-07-10] MEDS: LEVOTHYROXINE 75 MCG TABLET PO SCH (08:56)
[2021-07-10] MEDS: busPIRone 15 MG TABLET PO SCH (08:56)
[2021-07-10] MEDS: ESCITALOPRAM 10 MG TABLET PO SCH (08:56)
[2021-07-10] MEDS: DULoxetine 30 MG CAPSULE PO SCH (08:57)
[2021-07-10] MEDS: HYDROXYCHLOROQUINE 200 MG TABLET PO SCH (08:57)
[2021-07-10] MEDS: buPROPion 150 MG TAB.XL.24H PO SCH (08:58)
--- NOTE | 2021-07-10 09:28 | Discharge Summary ---
Discharge Provider Provider Patient information: Note initiated : 07/10/21 at 9:28 am Service Date, if different from initiated Date: [] Patient: Aminata Erickson 76 y/o F admitted on 07/05/21 for r hip pain. Chief Complaint: [] Date of admission: 07/05/21 01:56 Discharge date: 07/10/21 Primary care physician: Riki Mg DO Consults: 07/05/21 Consult to Physician [CONS] Stat Comment: Consulting Provider: Young Shankar Reason For Exam: Physician to Consult 07/05/21 08:55 Consult to Physician [CONS] Routine Comment: Consulting Provider: Santiago Delatorre Reason For Exam: Physician to Consult 07/09/21 07:40 Consult to Physician [CONS] Routine Comment: snf referral Consulting Provider: [facility] Reason For Exam: Physician to Consult 07/09/21 11:00 Consult to Physician [CONS] Routine Comment: snf referral Consulting Provider: [facility] Reason For Exam: Physician to Consult Discharge Meds Discharge Medications Home Medications trazodone 100 mg tablet 200 mg PO QHS PRN tab 11/07/14 [History Confirmed 07/05/21 Last Taken 07/03/21 21:00] buspirone 10 mg tablet See Rx Instructions .ROUTE .COMPLEX tab 05/23/15 [History Confirmed 07/05/21 Last Taken 07/04/21 21:00] escitalopram oxalate 10 mg tablet 10 mg PO QDAY 12/24/15 [History Confirmed 07/05/21 Last Taken 07/04/21 09:00] lorazepam 0.5 mg tablet 0.5 mg PO BID PRN tab 12/24/15 [History Confirmed 07/05/21 Last Taken 06/28/21 09:00] incontinence pad, liner, disp #100 each 03/06/16 [Rx Confirmed 07/05/21 Last Taken Unknown] bupropion HCl 300 mg 24 hr tablet, extended release 300 mg PO QAM 06/23/16 [History Confirmed 07/05/21 Last Taken 07/04/21 09:00] memantine ER 28 mg-donepezil 10 mg capsule sprinkle,ext.release 24 hr (Namzaric) 1 cap PO QHS 06/07/19 [History Confirmed 07/05/21 Last Taken 07/04/21 21:00] cholecalciferol (vitamin D3) 1,250 mcg (50,000 unit) capsule 50,000 unit PO QMONTH #12 cap 08/22/20 [Rx Confirmed 07/05/21 Last Taken 06/28/21 09:00] levothyroxine 75 mcg tablet 75 mcg PO QDAY #90 tab 02/05/21 [Rx Confirmed 07/05/21 Last Taken 07/04/21 07:00] hydroxychloroquine 200 mg tablet 300 mg PO QDAY #135 tab 02/20/21 [Rx Confirmed 07/05/21 Last Taken 07/04/21 09:00] alendronate 70 mg tablet 70 mg PO QWEEK #12 tab 03/06/21 [Rx Confirmed 07/05/21 Last Taken 06/29/21 09:00] atorvastatin 10 mg tablet 10 mg PO QDAY tab 03/19/21 [History Confirmed 07/05/21 Last Taken 07/04/21 09:00] ramelteon 8 mg tablet 8 mg PO QHS tab 03/19/21 [History Confirmed 07/05/21 Last Taken 07/03/21 21:00] pantoprazole 20 mg tablet,delayed release 20 mg PO BID #180 tab 04/17/21 [Rx Confirmed 07/05/21 Last Taken 07/04/21 20:00] linaclotide 72 mcg capsule (Linzess) 72 mcg PO QAM PRN 06/17/21 [History Confirmed 07/05/21 Last Taken 06/28/21 09:00] duloxetine 30 mg capsule,delayed release (Cymbalta) 30 mg PO QDAY #30 cap 06/26/21 [Rx Confirmed 07/05/21 Last Taken 07/04/21 09:00] acetaminophen 325 mg tablet (Tylenol) 650 mg PO Q6HP PRN #30 tab 07/10/21 [Rx Last Taken Unknown] methocarbamol 750 mg tablet 750 mg PO TIDP PRN #14 tab 07/10/21 [Rx Last Taken Unknown] polyethylene glycol 3350 17 gram oral powder packet (HealthyLax) 17 g PO DAILYP PRN #30 ea 07/10/21 [Rx Last Taken Unknown] COURSE Hospital Course Hospital course: Ms. Erickson is a 76 year old F Patient presented to ED after trip and fall around 5 PM with right hip pain. She does use a walker typically. Patient was sitting down and she got up to go take the garbage out got dizzy and fell. No loss of consciousness. Work-up in the ED revealed a right hip fracture. Dr. Shankar was contacted. 07/06 Patient feeling better postop. No overnight event or new complaints. 07/07 No change. Awaiting placement. 07/08 Awaiting placement. 07/09 No interval events, awaiting placement. 07/10 Discharged to SNF. Aspirin BID ordered for DVT prophylaxis by orthopedic surgery. Physical exam Head: Atraumatic, normal inspection. Eyes: normal appearance, no scleral icterus. Neck: full ROM Respiratory: no respiratory distress. Cardiovascular: normal rate and rhythm, S1, S2. GI/Abdominal: soft, nontender, no guarding. Extremities: Right hip surgical incision covered with clean bandage, tenderness to movement. Neurological: CN II-XII intact, intact motor, intact sensation. Psychiatric: normal mood. Skin: warm, normal color Discharge diagnosis: Right hip fracture Time Spent with Patient Time attestation: Total time spent providing and/or coordinating discharge services: EXAM Constitutional Vitals: Temp Pulse Resp BP Pulse Ox 97.7 F 70 16 104/62 96 07/10/21 07:37 07/10/21 07:37 07/10/21 07:37 07/10/21 07:37 07/10/21 07:37 Discharge Data Data Completed and Pending Labs on day of discharge: Labs from last 24 hours 07/10/21 07/10/21 05:10 05:10 WBC 4.9 RBC 3.24 L Hgb 9.9 L Hct 30.5 L MCV 94.1 MCH 30.6 MCHC 32.5 RDW 14.2 Plt Count 258 MPV 9.6 Neut % (Auto) 68.5 Lymph % (Auto) 13.4 L Polk % (Auto) 14.2 H Eos % (Auto) 3.1 Baso % (Auto) 0.8 Lymph # (Auto) 0.65 L Polk # (Auto) 0.69 Eos # (Auto) 0.15 Baso # (Auto) 0.04 Absolute Neutrophils 3.32 Sodium 137 Potassium 4.1 Chloride 102 Carbon Dioxide 26 Anion Gap 9.0 BUN 15 Creatinine 0.5 L GFR Calculation 94 Glucose 96 Calcium 8.8 Discharge Plan Patient/Caregiver Discharge Instructions Activity: increase activity as tolerated and other Diet: Regular Diet Instructions: ORIF of Hip Fracture (DC) Activity Restrictions/Additional Instructions: WBAT. Posterior hip precautions. Avoid flexion and IR. Wear comfortable clothing for your physical therapy. You have the silver dressing, leave in place for 14 days then remove. If dressing becomes soiled (turns black), remove and use gauze 4x4 dressing and antimicrobial silver ointment ([id number]) and change daily. You may shower with dressing on, pat dry after shower. To avoid constipation while taking any narcotic pain medication, take an over the counter stool softener/laxative. Use your ice packs as directed. Ice and elevation will help with pain and swelling. If you have any questions or concerns call your orthopedic surgeon before going to the emergency room. [facility] has a wind operations supervisor physician 24 hours per day/7 days per week and can be reached at [phone]. Call for fevers above 100.5 or pain not controlled by medication. Your prescriptions are with your discharge information. Some medications were electronically transmitted to your pharmacy of choice. Take Aspirin as prescribed to prevent blood clots (see medication list). This discharge packet is provided to you to help keep you informed about your care. We want to ensure you get everything you need when you go home. You will also be receiving a call from us in a few days to follow up with you and see how you are doing since your discharge. This gives us a chance to listen to any concerns you maybe experiencing since you were discharged or any additional needs you may have, as well as providing us feedback on your care experience. We strive to always provide excellent care and thank you for your feedback and for choosing [facility]. Prescriptions: New acetaminophen [Tylenol] 325 mg Tablet 650 mg PO Q6HP PRN (Reason: Per Pain Protocol/Fever > 101) Qty: 30 0RF polyethylene glycol 3350 [HealthyLax] 17 gram Powder In Packet 17 g PO DAILYP PRN (Reason: Constipation) Qty: 30 0RF methocarbamol 750 mg Tablet 750 mg PO TIDP PRN (Reason: Pain) Qty: 14 0RF Continued (DME) incontinence pad, liner, disp pad See Dose Instructions .ROUTE .MEDSUPPLY Qty: 100 2RF Dose Instruction: As directed Rx Instructions: Use as directed. Also include urinary wipes cholecalciferol (vitamin D3) 1,250 mcg (50,000 unit) capsule 50,000 unit PO QMONTH Qty: 12 0RF levothyroxine 75 mcg tablet 75 mcg PO QDAY Qty: 90 3RF alendronate 70 mg tablet 70 mg PO QWEEK Qty: 12 1RF duloxetine [Cymbalta] 30 mg capsule,delayed release(DR/EC) 30 mg PO QDAY Qty: 30 2RF trazodone 100 mg tablet 200 mg PO QHS PRN (Reason: Sleep) 0RF buspirone 10 mg tablet See Rx Instructions .ROUTE .COMPLEX 0RF Rx Instructions: mg orally ;PO Take 1 & 1/2 tablets in the morning and midday and 1 tablet at bedtime PO Namzaric 28-10 mg capsule,sprinkle,ER 24hr 1 cap PO QHS 0RF ramelteon 8 mg tablet 8 mg PO QHS 0RF atorvastatin 10 mg tablet 10 mg PO QDAY 0RF pantoprazole 20 mg tablet,delayed release (DR/EC) 20 mg PO BID Qty: 180 3RF Linzess 72 mcg capsule 72 mcg PO QAM PRN (Reason: Constipation) 0RF lorazepam 0.5 mg tablet 0.5 mg PO BID PRN (Reason: Anxiety) 0RF escitalopram oxalate 10 mg tablet 10 mg PO QDAY 0RF bupropion HCl 300 mg tablet extended release 24 hr 300 mg PO QAM 0RF hydroxychloroquine 200 mg tablet 300 mg PO QDAY Qty: 135 1RF Follow Up Plan Follow up with: Young Shankar MD [Physician] - (Please call and schedule a post surgical follow to be seen 10-13 days post surgery.) Tommy De Leon MD [Physician] - 07/16/21 8:00 am Riki Mg DO [Primary Care Provider] - 07/17/21 2:30 pm Patient Disposition: Xfer SNF Prognosis: Fair Rehab Potential: Fair I certify that the patient requires SNF services: Yes Overall status at discharge: patient is progressing back to baseline Discharge Orders: Discharge Order (Routine); Ordered 07/08/21 Ordered By: Young Shankar QUALITY VTE Deep Vein Thrombosis/Pulmonary Embolism Present on Admission: No
== END 2021-07-10 10:50 | DRG 522 ==
LOC: ED 00:17 → MEDSUR 01:56
PROVIDERS: ADMIT Internal Medicine; ATTEND Internal Medicine